=== PATIENT | male | born 1985 | race Caucasian/White ===

== ENCOUNTER 2017-08-17 11:00 | Emergency (ER) | payer OTHER ==
[~2017-08-17] VITALS: Ht 188 cm; Wt 139.7 kg
[~2017-08-17 11:00] MED LIST: ACET325 PO; ACET500; ACET500 PO; ALPR.25 PO; ASPI325; CEPH500 PO; CLON.5 PO; CLON1; CODEINE-GUAIFE120 ML PO; CYCL10; CYCL10 PO; DIPH25 PO; DIPH50 PO; GABA100 PO; HYDACE5 PO; HYDCOR1TC TOP; HYDR1TAB94 PO; IBUP600 PO; IBUP800; IBUP800 PO; Lyrica25 MG; METPRE4DP PO; MULVITA; NAPR550 PO; Naprosyn500 MG PO; Norco 5-325 Ta1 EACH PO; OXYACE5T PO; PARO10 PO; PRED10 PO; PRED20 PO; PROM25 PO; Pepcid40 MG PO; RXNAPNA550 PO; RXOXYACE PO; Vibramycin100 MG PO; Vistaril50 MG PO; [UNRECOGNIZED DRUG - OTHER]; [UNRECOGNIZED DRUG - REMARK]
[2017-08-17] MEDS ORDERED: Migraine Relie1 EACH (11:09)
[2017-08-17] MEDS ORDERED: NAPR500 (11:09)
[2017-08-17] MEDS ORDERED: CYCL10 (11:09)
[2017-08-17] MEDS ORDERED: [UNRECOGNIZED DRUG - OTHER] (11:10)
[2017-08-17] MEDS ORDERED: Norco 10-325 T1 EACH PO (11:42)
[2017-08-17] MEDS ORDERED: Valium5 MG PO (11:42)
[2017-12-26] MEDS ORDERED: Norco 5-325 Ta1 EACH PO (18:50)
[2017-12-26] MEDS ORDERED: Cipro500 MG PO (18:50)
== END 2017-08-17 11:43 | disposition home or self-care (01) ==
LOC: ER 11:00
DX: M62.89 Other specified disorders of muscle (principal); I10 Essential (primary) hypertension; F32.9 Major depressive disorder, single episode, unspecified; F17.200 Nicotine dependence, unspecified, uncomplicated; Z88.0 Allergy status to penicillin; Z88.5 Allergy status to narcotic agent; Z79.899 Other long term (current) drug therapy; Z79.82 Long term (current) use of aspirin; Z90.89 Acquired absence of other organs
CPT/HCPCS: 96372; 99283; J1885

== ENCOUNTER → 2017-09-19 | Outpatient (CLI) | payer OTHER ==
[~2017-09-19] MED LIST changes: +Cipro500 MG PO; +Migraine Relie1 EACH; +NAPR500; +Norco 10-325 T1 EACH PO; +Valium5 MG PO; +[UNRECOGNIZED DRUG - OTHER]
[2017-09-19 09:24] LABS: Specimen Source UR
[2017-09-20 14:39] LABS: Source UR
== END | disposition home or self-care (01) ==
LOC: LAB 09:00
PROVIDERS: Physician Assistant
DX: R30.0 Dysuria (principal)
CPT/HCPCS: 87491; 87591

== ENCOUNTER → 2017-12-26 | Outpatient (CLI) | payer OTHER ==
[2017-12-26 13:30] LABS: Source, Urine Clean Catch
[2017-12-26 16:09] LABS: Appearance, Urine Clear (Clear); Blood, Urine Neg (Neg); Glucose Qualitative, Urine Neg (Neg); Ketones, Urine Neg (Neg); Leukocyte Esterase, Urine Neg (Neg); Nitrite, Urine Pos (Neg); Protein, Urine 2+ (Neg); Specific Gravity, Urine 1.015 (1.003-1.022); Urobilinogen, Urine 4+ (Normal)
[2017-12-26 17:23] LABS: Bilirubin, Urine 3+ (Neg); Color, Urine Orange (P-Yellow)
[2017-12-26 17:24] LABS: Mucus Light (0-Heavy); Squamous Epithelial Cells Few /hpf (Few)
[2017-12-26 17:25] LABS: Bacteria Few /hpf; Red Blood Cells, Urine 0-2 /hpf (0-2)
== END ==
LOC: LAB SHORT 12:00 → LAB 12:00
PROVIDERS: Nurse Practitioner Family
DX: R31.0 Gross hematuria (principal)
CPT/HCPCS: 81001; 87086

== ENCOUNTER 2020-05-26 16:28 | Emergency (ER) | payer OTHER ==
[~2020-05-26] VITALS: Ht 190.5 cm; Wt 145.2 kg
[~2020-05-26 16:28] MED LIST changes: -Buspirone HCl15 MG PO; -DULOXETINE HCL60 M1 PO; -OXYACE7.5T PO; -PREGABALIN75 MG PO
[2020-05-26] MEDS ORDERED: PREGABALIN75 MG PO (16:38)
[2020-05-26] MEDS ORDERED: Buspirone HCl15 MG PO (16:39)
[2020-05-26] MEDS ORDERED: DULOXETINE HCL60 M1 PO (16:39)
[2020-05-26 16:50] LABS: BASOPHILS ABSOLUTE AUTO 0.06 K/mm3 (0.00-0.23); BASOPHILS PERCENT AUTO 0 % (0-2); EOSINOPHILS ABSOLUTE AUTO 0.18 K/mm3 (0.00-0.68); EOSINOPHILS PERCENT AUTO 1 % (0-6); Hematocrit 43.6 % (37.0-53.0); Hemoglobin 14.4 g/dL (13.5-17.5); IMMATURE GRAN ABSOLUTE AUTO 0.05 K/mm3 (0.00-0.10); IMMATURE GRAN PERCENT AUTO 0 % (0-1); LYMPHOCYTES ABSOLUTE AUTO 2.25 K/mm3 (0.84-5.20); LYMPHOCYTES PERCENT AUTO 15 % (21-46); MONOCYTES ABSOLUTE AUTO 1.06 K/mm3 (0.16-1.47); MONOCYTES PERCENT AUTO 7 % (4-13); Mean Corpuscular HGB 29.9 pg (26.0-34.0); Mean Corpuscular Volume 91 fL (80-100); Mean Platelet Volume 9.5 fL (9.1-12.4); NEUTROPHILS ABSOLUTE AUTO 11.63 K/mm3 (1.96-9.15); NEUTROPHILS PERCENT AUTO 76 % (41-73); Platelet Count 257 K/mm3 (150-400); RDW Coefficient Variation 12.3 % (11.7-14.2); RDW Standard Deviation 40.6 fL (35.1-46.3); Red Blood Cell Count 4.81 M/mm3 (4.30-5.90); White Blood Cell Count 15.23 K/mm3 (4.00-11.30)
[2020-05-26 17:04] LABS: International Normalized Ratio 0.96; Prothrombin Time Results 10.3 Sec (9.7-11.5)
[2020-05-26 17:12] LABS: Alanine Aminotransfer (ALT/SGP 46 U/L (12-78); Albumin, Blood 4.6 g/dL (3.4-5.0); Albumin/Globulin Ratio 1.5 (0.8-1.8); Alk Phos 80 U/L (50-136); Anion Gap 5 mmol/L (6-16); Aspartate Aminotrans (AST/SGOT 27 U/L (12-37); Bilirubin, Total 0.5 mg/dL (0.1-1.0); Blood Urea Nitrogen 13 mg/dL (8-24); CO2, Blood 26 mmol/L (21-32); Calcium, Blood 9.2 mg/dL (8.5-10.1); Chloride, Blood 108 mmol/L (98-108); Creatinine, Blood 0.93 mg/dL (0.60-1.20); Globulin, Blood 3.1 g/dL (2.2-4.0); Glomerular Filtration Rate >60 (60-); Glucose, Blood 99 mg/dL (70-99); Potassium, Blood 4.2 mmol/L (3.5-5.5); Sodium, Blood 139 mmol/L (136-145); Total Protein, Blood 7.7 g/dL (6.4-8.2)
[2020-05-26] MEDS ORDERED: OXYACE7.5T PO (17:37)
== END 2020-05-26 18:32 | disposition home or self-care (01) ==
LOC: ER 16:28
PROVIDERS: Emergency Medicine
DX: S09.90XA Unspecified injury of head, initial encounter (principal); S16.1XXA Strain of muscle, fascia and tendon at neck level, initial encounter; S20.219A Contusion of unspecified front wall of thorax, initial encounter; S30.811A Abrasion of abdominal wall, initial encounter; M54.5 Low back pain; M54.6 Pain in thoracic spine; F32.9 Major depressive disorder, single episode, unspecified; I10 Essential (primary) hypertension; F17.210 Nicotine dependence, cigarettes, uncomplicated; Z88.5 Allergy status to narcotic agent; V53.5XXA Driver of pick-up truck or van injured in collision with car, pick-up truck or van in traffic accident, initial encounter; Y92.410 Unspecified street and highway as the place of occurrence of the external cause
CPT/HCPCS: 36415; 70450; 71045; 71260; 72125; 74177; 80053; 83690; 85025; 85610; 86850; 86900; 86901; 93005; 93010; 96374-59; 96376-59; 99285-25; J3010; Q9967

== ENCOUNTER → 2020-05-26 | Outpatient (CLI) | payer BC ==
[~2020-05-26] MED LIST changes: +Buspirone HCl15 MG PO; +DULOXETINE HCL60 M1 PO; +OXYACE7.5T PO; +PREGABALIN75 MG PO
[2020-05-26 16:22] LABS: BASOPHILS ABSOLUTE AUTO 0.05 K/mm3 (0.00-0.23); BASOPHILS PERCENT AUTO 0 % (0-2); EOSINOPHILS ABSOLUTE AUTO 0.19 K/mm3 (0.00-0.68); EOSINOPHILS PERCENT AUTO 1 % (0-6); Hematocrit 43.1 % (37.0-53.0); Hemoglobin 14.9 g/dL (13.5-17.5); IMMATURE GRAN ABSOLUTE AUTO 0.05 K/mm3 (0.00-0.10); IMMATURE GRAN PERCENT AUTO 0 % (0-1); LYMPHOCYTES ABSOLUTE AUTO 1.89 K/mm3 (0.84-5.20); LYMPHOCYTES PERCENT AUTO 13 % (21-46); MONOCYTES ABSOLUTE AUTO 1.03 K/mm3 (0.16-1.47); MONOCYTES PERCENT AUTO 7 % (4-13); Mean Corpuscular HGB 30.7 pg (26.0-34.0); Mean Corpuscular HGB Conc 34.6 g/dL (31.5-36.5); Mean Corpuscular Volume 89 fL (80-100); Mean Platelet Volume 9.7 fL (9.1-12.4); NEUTROPHILS ABSOLUTE AUTO 11.22 K/mm3 (1.96-9.15); NEUTROPHILS PERCENT AUTO 78 % (41-73); Platelet Count 273 K/mm3 (150-400); RDW Coefficient Variation 12.5 % (11.7-14.2); RDW Standard Deviation 40.6 fL (35.1-46.3); Red Blood Cell Count 4.86 M/mm3 (4.30-5.90); White Blood Cell Count 14.43 K/mm3 (4.00-11.30)
[2020-05-26 16:36] LABS: Alanine Aminotransfer (ALT/SGP 49 U/L (12-78); Albumin, Blood 4.9 g/dL (3.4-5.0); Albumin/Globulin Ratio 1.4 (0.8-1.8); Alk Phos 79 U/L (40-126); Anion Gap 10 mmol/L (6-16); Aspartate Aminotrans (AST/SGOT 29 U/L (12-37); Bilirubin, Total 0.5 mg/dL (0.1-1.0); Blood Urea Nitrogen 14 mg/dL (8-24); Bun/Creatinine Ratio 14.9 (12.0-20.0); CO2, Blood 26 mmol/L (21-32); Calcium, Blood 9.6 mg/dL (8.5-10.1); Chloride, Blood 101 mmol/L (98-108); Creatinine, Blood 0.94 mg/dL (0.60-1.20); Globulin, Blood 3.5 g/dL (2.2-4.0); Glomerular Filtration Rate >60 (60-); Glucose, Blood 100 mg/dL (70-99); Potassium, Blood 4.3 mmol/L (3.5-5.5); Sodium, Blood 137 mmol/L (136-145); Total Protein, Blood 8.4 g/dL (6.4-8.2)
== END | disposition home or self-care (01) ==
LOC: LAB SHORT 16:15
PROVIDERS: Chiropractor
DX: R07.9 Chest pain, unspecified (principal)
CPT/HCPCS: 80053; 85025

== ENCOUNTER → 2020-11-27 | Outpatient (CLI) | payer OTHER ==
[~2020-11-27] MED LIST changes: +Buspirone HCl15 MG PO; +DULOXETINE HCL60 M1 PO; +OXYACE7.5T PO; +PREGABALIN75 MG PO
[2020-11-27 17:27] LABS: BASOPHILS ABSOLUTE AUTO 0.03 K/mm3 (0.00-0.23); BASOPHILS PERCENT AUTO 0 % (0-2); EOSINOPHILS ABSOLUTE AUTO 0.27 K/mm3 (0.00-0.68); EOSINOPHILS PERCENT AUTO 3 % (0-6); Hematocrit 40.3 % (37.0-53.0); Hemoglobin 13.8 g/dL (13.5-17.5); IMMATURE GRAN ABSOLUTE AUTO 0.04 K/mm3 (0.00-0.10); IMMATURE GRAN PERCENT AUTO 0 % (0-1); LYMPHOCYTES ABSOLUTE AUTO 2.39 K/mm3 (0.84-5.20); LYMPHOCYTES PERCENT AUTO 23 % (21-46); MONOCYTES ABSOLUTE AUTO 0.61 K/mm3 (0.16-1.47); MONOCYTES PERCENT AUTO 6 % (4-13); Mean Corpuscular HGB 30.5 pg (26.0-34.0); Mean Corpuscular HGB Conc 34.2 g/dL (31.5-36.5); Mean Corpuscular Volume 89 fL (80-100); Mean Platelet Volume 10.3 fL (9.1-12.4); NEUTROPHILS ABSOLUTE AUTO 6.87 K/mm3 (1.96-9.15); NEUTROPHILS PERCENT AUTO 67 % (41-73); Platelet Count 240 K/mm3 (150-400); RDW Coefficient Variation 12.7 % (11.7-14.2); RDW Standard Deviation 40.9 fL (35.1-46.3); Red Blood Cell Count 4.52 M/mm3 (4.30-5.90); White Blood Cell Count 10.21 K/mm3 (4.00-11.30)
[2020-11-27 17:37] LABS: Alanine Aminotransfer (ALT/SGP 42 U/L (12-78); Albumin, Blood 4.4 g/dL (3.4-5.0); Albumin/Globulin Ratio 1.4 (0.8-1.8); Alk Phos 109 U/L (40-126); Anion Gap 8 mmol/L (6-16); Aspartate Aminotrans (AST/SGOT 29 U/L (12-37); Bilirubin, Total 0.3 mg/dL (0.1-1.0); Blood Urea Nitrogen 22 mg/dL (8-24); Bun/Creatinine Ratio 21.2 (12.0-20.0); CO2, Blood 28 mmol/L (21-32); Calcium, Blood 8.9 mg/dL (8.5-10.1); Chloride, Blood 104 mmol/L (98-108); Creatinine, Blood 1.04 mg/dL (0.60-1.20); Globulin, Blood 3.1 g/dL (2.2-4.0); Glomerular Filtration Rate >60 (60-); Glucose, Blood 117 mg/dL (70-99); Potassium, Blood 3.8 mmol/L (3.5-5.5); Sodium, Blood 140 mmol/L (136-145); Total Protein, Blood 7.5 g/dL (6.4-8.2)
[2020-11-27 17:52] LABS: Thyroid Stimulating Hormone 1.069 uIU/mL (0.360-4.800); Troponin I <0.017 ng/mL (0.000-0.040)
== END | disposition home or self-care (01) ==
LOC: LAB SHORT 17:19
PROVIDERS: Physician Assistant Medical
DX: R07.9 Chest pain, unspecified (principal); R53.83 Other fatigue
CPT/HCPCS: 80053; 84443; 84484; 85025; 85379; 85651

== ENCOUNTER 2022-10-07 18:56 | Emergency (ER) | payer OTHER ==
[~2022-10-07] VITALS: Ht 190.5 cm; Wt 158.8 kg
[2022-10-07] MEDS ORDERED: PREG200 PO (20:12)
[2022-10-07] MEDS ORDERED: QUETIAPINE FUMA25 MG PO (20:13)
[2022-10-07] MEDS ORDERED: Zithromax250 MG PO (20:18)
[2022-10-07 20:31] LABS: Influenza A, PCR NEGATIVE (NEGATIVE); Influenza B, PCR NEGATIVE (NEGATIVE); Resp Syncytial Virus, PCR NEGATIVE (NEGATIVE); SARS-Cov-2 (COVID-19) PCR, MMC NEGATIVE (NEGATIVE)
[2022-10-07 21:41] LABS: BASOPHILS ABSOLUTE AUTO 0.05 K/mm3 (0.00-0.23); BASOPHILS PERCENT AUTO 0 % (0-2); EOSINOPHILS PERCENT AUTO 1 % (0-6); Hematocrit 34.1 % (37.0-53.0); Hemoglobin 11.5 g/dL (13.5-17.5); IMMATURE GRAN PERCENT AUTO 2 % (0-1); LYMPHOCYTES ABSOLUTE AUTO 1.84 K/mm3 (0.84-5.20); LYMPHOCYTES PERCENT AUTO 10 % (21-46); MONOCYTES ABSOLUTE AUTO 2.12 K/mm3 (0.16-1.47); MONOCYTES PERCENT AUTO 12 % (4-13); Mean Corpuscular HGB 29.6 pg (26.0-34.0); Mean Corpuscular HGB Conc 33.7 g/dL (31.5-36.5); Mean Corpuscular Volume 88 fL (80-100); Mean Platelet Volume 10.2 fL (9.1-12.4); NEUTROPHILS ABSOLUTE AUTO 13.81 K/mm3 (1.96-9.15); NEUTROPHILS PERCENT AUTO 76 % (41-73); Platelet Count 192 K/mm3 (150-400); RDW Coefficient Variation 13.1 % (11.7-14.2); RDW Standard Deviation 42.4 fL (35.1-46.3); Red Blood Cell Count 3.89 M/mm3 (4.30-5.90); White Blood Cell Count 18.22 K/mm3 (4.00-11.30)
[2022-10-07 22:01] LABS: Albumin, Blood 2.8 g/dL (3.4-5.0); Albumin/Globulin Ratio 0.7 (0.8-1.8); Bilirubin, Total 0.4 mg/dL (0.1-1.0); Bun/Creatinine Ratio 15.7 (12.0-20.0); Calcium, Blood 8.5 mg/dL (8.5-10.1); Creatinine, Blood 0.83 mg/dL (0.60-1.20); Globulin, Blood 4.3 g/dL (2.2-4.0); Potassium, Blood 3.9 mmol/L (3.5-5.5); Total Protein, Blood 7.1 g/dL (6.4-8.2)
[2022-10-08] MEDS ORDERED: DIVA250ER PO (22:43)
[2022-10-08] MEDS ORDERED: TIZANIDINE HCL2 M1 PO (22:57)
== END 2022-10-07 22:56 | disposition home or self-care (01) ==
LOC: ER 18:56
PROVIDERS: Physician Assistant
DX: J18.9 Pneumonia, unspecified organism (principal); I10 Essential (primary) hypertension; F17.210 Nicotine dependence, cigarettes, uncomplicated; Z88.0 Allergy status to penicillin; Z88.5 Allergy status to narcotic agent; Z79.899 Other long term (current) drug therapy; Z20.822 Contact with and (suspected) exposure to COVID-19
CPT/HCPCS: 0241U; 36415; 71046; 80053; 83605; 85025; 96365; 96375; 99284-25; A9270; J0456; J1885; J7030; J7050

== ENCOUNTER 2022-10-08 16:59 | Inpatient (IN) | payer OTHER ==
[~2022-10-08] VITALS: Ht 190.5 cm; Wt 160.0 kg
[~2022-10-08 16:59] MED LIST changes: +PREG200 PO; +QUETIAPINE FUMA25 MG PO; +Zithromax250 MG PO
[2022-10-08 17:54] LABS: BASOPHILS ABSOLUTE AUTO 0.07 K/mm3 (0.00-0.23); BASOPHILS PERCENT AUTO 1 % (0-2); EOSINOPHILS ABSOLUTE AUTO 0.11 K/mm3 (0.00-0.68); EOSINOPHILS PERCENT AUTO 1 % (0-6); Hematocrit 34.8 % (37.0-53.0); Hemoglobin 11.7 g/dL (13.5-17.5); IMMATURE GRAN PERCENT AUTO 5 % (0-1); LYMPHOCYTES ABSOLUTE AUTO 1.54 K/mm3 (0.84-5.20); LYMPHOCYTES PERCENT AUTO 10 % (21-46); MONOCYTES ABSOLUTE AUTO 1.43 K/mm3 (0.16-1.47); MONOCYTES PERCENT AUTO 10 % (4-13); Mean Corpuscular HGB 29.5 pg (26.0-34.0); Mean Corpuscular HGB Conc 33.6 g/dL (31.5-36.5); Mean Corpuscular Volume 88 fL (80-100); Mean Platelet Volume 10.4 fL (9.1-12.4); NEUTROPHILS ABSOLUTE AUTO 11.22 K/mm3 (1.96-9.15); NEUTROPHILS PERCENT AUTO 75 % (41-73); Platelet Count 202 K/mm3 (150-400); RDW Coefficient Variation 13.3 % (11.7-14.2); Red Blood Cell Count 3.97 M/mm3 (4.30-5.90); White Blood Cell Count 15.07 K/mm3 (4.00-11.30)
[2022-10-08 18:06] LABS: Albumin/Globulin Ratio 0.7 (0.8-1.8); Bilirubin, Total 0.4 mg/dL (0.1-1.0); Bun/Creatinine Ratio 15.9 (12.0-20.0); Calcium, Blood 8.8 mg/dL (8.5-10.1); Creatinine, Blood 0.82 mg/dL (0.60-1.20); Globulin, Blood 4.3 g/dL (2.2-4.0); Potassium, Blood 3.6 mmol/L (3.5-5.5); Total Protein, Blood 7.3 g/dL (6.4-8.2)
[2022-10-08] MEDS ORDERED: DIVA250ER PO (22:43)
[2022-10-08] MEDS ORDERED: TIZANIDINE HCL2 M1 PO (22:57)
[2022-10-09 04:38] LABS: Hematocrit 33.3 % (37.0-53.0); Mean Corpuscular HGB 28.8 pg (26.0-34.0); Mean Corpuscular Volume 87 fL (80-100); Mean Platelet Volume 10.5 fL (9.1-12.4); Platelet Count 195 K/mm3 (150-400); RDW Coefficient Variation 13.5 % (11.7-14.2); RDW Standard Deviation 43.2 fL (35.1-46.3); Red Blood Cell Count 3.82 M/mm3 (4.30-5.90)
[2022-10-09 05:12] LABS: BAND PERCENT MAN 5 % (0-8); BASOPHILS ABSOLUTE MAN 0.14 K/mm3 (0.00-0.23); BASOPHILS PERCENT MAN 1 % (0-2); EOSINOPHILS PERCENT MAN 0 % (0-6); LYMPHOCYTES ABSOLUTE MAN 1.29 K/mm3 (0.84-5.20); LYMPHOCYTES PERCENT MAN 9 % (21-46); MONOCYTES ABSOLUTE MAN 0.86 K/mm3 (0.16-1.47); MONOCYTES PERCENT MAN 6 % (4-13); MYELOCYTE ABSOLUTE MAN 0.43 K/mm3 (0.00-0.00); MYELOCYTE PERCENT MAN 3 % (0-0); NEUTROPHILS ABSOLUTE MAN 11.66 K/mm3 (1.96-9.15); SEG NEUTROPHILS PERCENT MAN 76 % (41-73); TOTAL CELLS COUNTED 100
--- NOTE | 2022-10-09 07:25 | NUR ---
Shift Summary PT arrived to our unit from the ED with a dx of bilat pneumonia, worse in the R lobe and sepsis. Pt was given his normal mental health meds except Serquel at 0055. Pt c/o severe 8-9/10 pain on his R torso which can radiate to his back and down his right arm. Medicated per EMAR. Pt took a shower with the assistance of his fiance around midnight. AOX4, 1 SBA to the bathroom, on room air. PT on tele running sinus tach. VSS, pleasant and cooperative.
--- NOTE | 2022-10-09 13:02 | NUR ---
NOTE AFTER MULTIPLE PHONE CALLS TO DR BAER. PT IS FINALLY RESTING. PAIN AND ANXIETY HAVE BEEN A SIGNIFICANT COMPLICATION WITHHIS ABILITY TO REST. GIRLFRIEND AT BEDSIDE. HE IS COUGHING UP LARGE YELLOW/MTZ PLUGS. WHEN HE COUGHS HIS INTERCOSTAL MUSCLES SPASM AND HE JUMPS OOB. HE TRIED TO HUG A PILLOW. DID NOT HELP. TRIED A KPAD. HE LIKED IT BUT IT MADE HIM TOO HOT. WILL CONTINUE TO MONITOR.
--- NOTE | 2022-10-09 15:14 | NUR ---
LOC PT SOMULENT, NODDING OFF. SLURRING HIS WORDS. BUT HE STILLWANTS MORE NARCOTICS. COUGHING UP LARGE AMOUNTS OF YELLOW, SPUTUM. CONTINIOUS SPO2 92-94%. HR 120'S. WHEN HE COUGHS HIS SPO2 DROPS TO 86%. HE RECOVERS SOON HE STOPS COUGHING. REFUSES TO USE CPAP. HE SAYS HE TO ANXIOUS. DR BAER IS AWARE. CONTINUE POC.
--- NOTE | 2022-10-09 15:23 | NUR ---
DR BAER CALLED TO RELAY FAMILY REQUET TO MOVE TO PCU. RELATED VS AND BP. NO ORDERS. DR BAER STATED HE WILL BE HERE TO REASSESS PT. CONTINUE POC.
[2022-10-09 16:35] LABS: Base Excess Venous 1.2 mmol/L; Bicarbonate Venous 24.7 mmol/L (24.0-30.0); PCO2 Venous 43.4 mmHg (38-42); pH Blood Venous 7.39 (7.34-7.37)
--- NOTE | 2022-10-09 17:30 | NUR ---
TRANSFER TO PCU 5 REPORT CALLED TO PCU. PT TRANSPORTED VIA OXYGEN BED. GIRL FRIEND IN ATTENDANCE. BELONGINGS AND CPAP MOVED WITH HIM. DR BAER IN ATTENDANCE. CONTINUE POC.
--- NOTE | 2022-10-09 18:25 | NUR ---
PT ARRIVED IN THE ROOM AT APPROX 1700 VIA HOSPITAL BED SIGNIFICANT OTHER AT THE BEDSIDE. PT WAS TACHYPNEIC RR 35-40 WAS ON 3L UPON ARRIVAL WAS BUMPED UP TO 6L PT CARLO KEPT ABOVE 90%, HRR ALSO ST ON THE 140-150'S PT STARTED ON CARDIZEM PO 30 MG ACHS, SBP 120'S, TEMP 99.2. PT WITH ANXIETY AND PANIC ATTACK STOOD UP AT THE BEDSIDE STARTED C/O SOB RIGHT WHEN PT SAT BACK IN BED PT YELLED OUT "I CANT BREATHE!" NOTICED THAT PT PULLED HIS O2 UP TO HIS FOREHEAD REDIRECTED TO PUT IT BACK IN PLACE AND INSTRUCTED WITH DEEP BREATHING EXERCISES SATS WENT DOWN TO 85% RECOVERED BACK AFTER O2 TURNED UP TO 6L. PT HAS RIGHT RIB PAIN HAS FLAIL MOVEMENT WHEN COUGHING DUE TO PAIN, MEDICATED WITH OXYCODONE AND TYLENOL. PT MORE CALM AT THIS TIME, MOM AND BROTHER AT THE BEDSIDE. DENIES ANY NEED. REFUSED DINNER TRAY. WILL REPORT TO ONCOMING SHIFT
[2022-10-09 21:13] LABS: U Amphetamine Screen Not Detected; U Barbituate Screen Not Detected; U Benzodiazapine Screen Not Detected; U Buprenorphine Screen Not Detected; U Cannabinoids Screen DETECTED; U Cocaine Screen Not Detected; U Methadone Screen Not Detected; U Methamphetamine Screen Not Detected; U Opiates Screen DETECTED; U Oxycodone Screen DETECTED; U Phencyclidine Screen Not Detected; U Propoxyphene Screen Not Detected
--- NOTE | 2022-10-09 21:32 | NUR ---
ASSUMPTION OF CARE THIS RN ASSUMED CARE OF PATIENT AT 1900. REPORT TAKEN FROM YAAKOV ROBERTS. PATIENT ON 6L VIA NC. BREATHING TREATMENT DONE AT BEGINNING OF SHIFT D/T AUDIBLE WHEEZES HEARD BY THIS RN. LS WITH COARSE CRACKLES THROUGHOUT. WHEEZING IN UPPER LOBES. BP STABLE WITH SBP 150'S. SINUS TACH ON THE MONITOR WITH HR 120-130'S AT REST, HR UP TO 150-160'S WITH ACTIVITY. TACHYPNEA NOTED WITH RR 26-32. RIGHT UPPER RIB AND POSTERIOR SCAPULA PAIN REPORTED; LIDOCAINE PATCHES PLACED PER ORDER AND PATIENT PREFERENCE. MEDICATING PER EMAR FOR ANXIETY AND PAIN. PATIENT HAS BEEN LETHARGIC MOST OF THE SHIFT. PALE AND DIAPHORETIC. ORAL TEMP 99.2 AT BEGINNING OF SHIFT. PULSES STRONG THROUGHOUT. CAP REFILL <3 SECONDS. PATIENT TO IMAGING FOR CHEST CT AT 2100. TOXICOLOGY UA SENT. BED IN LOWEST POSITION AND CALL LIGHT WITHIN REACH.
--- NOTE | 2022-10-10 05:06 | NUR ---
SHIFT SUMMARY NO ACUTE CHANGES OVERNIGHT. SINUS TACH ON THE MONITOR WITH HR 100-110'S WHILE RESTING. PATIENT IS CURRENTLY ON CPAP AND HAS WORN IT THE MAJORITY OF THE SHIFT WITH 6L BLEED IN. RR 22-26 AT THIS TIME. AFEBRILE. BP STABLE. CONTINUES TO BE LETHARGIC AND DIAPHORETIC. HOB ELEVATED. MEDICATING PER EMAR FOR PAIN. REPOSITIONING Q2HRS PRN DEPENDENDING ON ACTIVITY/LETHARGY. BED IN LOWEST POSITION AND CALL LIGHT WITHIN REACH. NO FURTHER CHANGES SINCE PREVIOUS NOTE. SEE ASSESSMENT. THIS RN WILL CONTINUE TO MONITOR UNTIL SHIFT CHANGE AT 0700.
[2022-10-10 06:28] LABS: BASOPHILS ABSOLUTE AUTO 0.18 K/mm3 (0.00-0.23); BASOPHILS PERCENT AUTO 1 % (0-2); EOSINOPHILS ABSOLUTE AUTO 0.03 K/mm3 (0.00-0.68); EOSINOPHILS PERCENT AUTO 0 % (0-6); Hematocrit 36.9 % (37.0-53.0); Hemoglobin 12.4 g/dL (13.5-17.5); IMMATURE GRAN PERCENT AUTO 3 % (0-1); LYMPHOCYTES ABSOLUTE AUTO 1.93 K/mm3 (0.84-5.20); LYMPHOCYTES PERCENT AUTO 6 % (21-46); MONOCYTES ABSOLUTE AUTO 2.88 K/mm3 (0.16-1.47); MONOCYTES PERCENT AUTO 9 % (4-13); Mean Corpuscular HGB Conc 33.6 g/dL (31.5-36.5); Mean Corpuscular Volume 86 fL (80-100); Mean Platelet Volume 10.2 fL (9.1-12.4); NEUTROPHILS ABSOLUTE AUTO 25.94 K/mm3 (1.96-9.15); NEUTROPHILS PERCENT AUTO 82 % (41-73); Platelet Count 232 K/mm3 (150-400); RDW Coefficient Variation 13.7 % (11.7-14.2); Red Blood Cell Count 4.27 M/mm3 (4.30-5.90); White Blood Cell Count 31.76 K/mm3 (4.00-11.30)
[2022-10-10 06:44] LABS: Albumin, Blood 2.3 g/dL (3.4-5.0); Anion Gap 5 mmol/L (6-16); Blood Urea Nitrogen 10 mg/dL (8-24); Bun/Creatinine Ratio 12.3 (12.0-20.0); CO2, Blood 29 mmol/L (21-32); Calcium, Blood 8.4 mg/dL (8.5-10.1); Chloride, Blood 102 mmol/L (98-108); Creatinine, Blood 0.81 mg/dL (0.60-1.20); Glomerular Filtration Rate 118 (60-); Glucose, Blood 114 mg/dL (70-99); Phosphorus, Blood 5.1 mg/dL (2.5-4.9); Potassium, Blood 3.9 mmol/L (3.5-5.5); Sodium, Blood 136 mmol/L (136-145)
--- NOTE | 2022-10-10 09:01 | NUR ---
PATIENT IN NO DISTRESS THIS AM, OFF CPAP ON 6L O2, JACKIE PARTIDA CALLED AND DEMANDED TO SPEAK TO NURSING [employer] SALES REPRESENTATIVE, REPORTED TO DR BAER AND CHARGE NURSE OF JACKIE PARTIDA REQUESTS, CALL LIGHT WITH IN PATIENTS REACH, PATIENT ABLE TO MAKE NEEDS KNOWN
--- NOTE | 2022-10-10 15:42 | NUR ---
POWERGLIDE PLACED, PATIENT VERY SOB, DESATED TO 82%, RECOVERED WITH DEEP BREATHING, PATIENT DID NOT RECOVER QUICKLY, PATIENT STAYED 89-90% ON 6L O2, REPORTED TO RT, PATIENT TO BE GOING DOWN FOR CT DRAIN PLACEMENT, AT BEDSIDE
--- NOTE | 2022-10-10 16:43 | NUR ---
PATIENT IN CT FOR DRAINAGE BAG PLACEMENT, AND MOTHER WAITING IN THE ROOM
--- NOTE | 2022-10-10 17:37 | NUR ---
BACK FROM CT AT 1755, DRAINAGE BAG TO RIGHT FLANK, ALERT MAKES NEEDS KNOWN, 05/13 PAIN, MEDICATED WITH 5MG OXYCODONE, FIANCE AND MOTHER AT BEDSIDE, PATIENT CLEARING CONGESTION, PRODUCTIVE COUGH, SPUTUMN SAMPLE SENT, 7L HIGH FLOW, SATS 91-94%, ENCOURAGED DEEP BREAHTING. STARTED VANCOMYCIN AND ZOSYN, CALL LIGHT WITH IN REACH, WILL RELAY TO PM ARMANDO
[2022-10-10 17:41] LABS: Automated BF RBC Count 0.006 M/mm3 (0-0)
[2022-10-10 17:46] LABS: Body Fluid WBC Count 2540 /mm3 (0-999); RBC Count, Body Fluid 6000 /mm3 (0-0)
[2022-10-10 18:27] LABS: Appearance, Body Fluid Hazy (Clear); Color, Body Fluid Yellow (None-Yellow); Total Cell Count, Body Fluid 100
[2022-10-10 18:50] LABS: Glucose, Body Fluid 2 mg/dL; Lactate Dehydrogenase, Body Fl 891 U/L; Protein, Body Fluid 4.8 g/dL
--- NOTE | 2022-10-10 19:51 | NUR ---
ASSUMPTION OF CARE THIS RN ASSUMED CARE OF PATIENT AT 1900. REPORT TAKEN FROM ANDREW ROBERTS. PATIENT IS LETHARGIC BUT ORIENTED FULLY AT SHIFT CHANGE. ON 8L VIA HIFLOW NC WITH SPO2 90-91%. RR 24-26. ACCORDIAN DRAIN IN RIGHT UPPER CHEST WITH THIN YELLOW DRAINAGE IN COLLECTION BAG; DRESSING C/D/I AND STATLOCK SECURING DRAIN. PATIENT CONTINUES TO ENDORSE PAIN IN UPPER CHEST THAT IS INCREASED WITH COUGHING. REPORTED PRODUCTIVE COUGH, NO PRODUCTIVE COUGH NOTED YET THIS SHIFT. BP STABLE WITH SBP 140'S. SINUS TACH ON MONITOR WITH HR 100-110'S. MOTHER AND GIRLFRIEND AT BEDSIDE. GIRLFRIEND STATES SHE WILL BE STAYING THE NIGHT. GIRLFRIEND EDUCATED ON VISITOR POLICY, THIS RN STATED SHE WILL BE ALLOWED TO STAY LONG SHE IS APPROPRIATE AND DOES NOT INTERFERE WTIH THIS RN'S CARE. GIRLFRIEND WITH NOTED HIGH LEVEL OF ANXIETY AND EDUCATED ON ASKING QUESTIONS AND NOT CAUSING INCREASED ANXIETY FOR PATIENT. PATIENT BEING REPOSITIONED Q2HRS. CPAP FOR NOC/SLEEP. MEDICATING PER EMAR. BED IN LOWEST POSITION AND CALL LIGHT WITHIN REACH.
[2022-10-11 03:56] LABS: BASOPHILS ABSOLUTE AUTO 0.12 K/mm3 (0.00-0.23); BASOPHILS PERCENT AUTO 0 % (0-2); EOSINOPHILS ABSOLUTE AUTO 0.05 K/mm3 (0.00-0.68); EOSINOPHILS PERCENT AUTO 0 % (0-6); Hematocrit 32.3 % (37.0-53.0); Hemoglobin 11.1 g/dL (13.5-17.5); IMMATURE GRAN ABSOLUTE AUTO 1.36 K/mm3 (0.00-0.10); IMMATURE GRAN PERCENT AUTO 5 % (0-1); LYMPHOCYTES ABSOLUTE AUTO 1.95 K/mm3 (0.84-5.20); LYMPHOCYTES PERCENT AUTO 7 % (21-46); MONOCYTES ABSOLUTE AUTO 2.15 K/mm3 (0.16-1.47); MONOCYTES PERCENT AUTO 8 % (4-13); Mean Corpuscular HGB 29.4 pg (26.0-34.0); Mean Corpuscular HGB Conc 34.4 g/dL (31.5-36.5); Mean Corpuscular Volume 85 fL (80-100); Mean Platelet Volume 10.8 fL (9.1-12.4); NEUTROPHILS ABSOLUTE AUTO 21.09 K/mm3 (1.96-9.15); NEUTROPHILS PERCENT AUTO 79 % (41-73); Platelet Count 240 K/mm3 (150-400); RDW Coefficient Variation 13.9 % (11.7-14.2); RDW Standard Deviation 43.5 fL (35.1-46.3); Red Blood Cell Count 3.78 M/mm3 (4.30-5.90); White Blood Cell Count 26.72 K/mm3 (4.00-11.30)
[2022-10-11 04:15] LABS: Magnesium, Blood 2.5 mg/dL (1.6-2.4)
[2022-10-11 04:16] LABS: Anion Gap 4 mmol/L (6-16); Blood Urea Nitrogen 12 mg/dL (8-24); Bun/Creatinine Ratio 16.5 (12.0-20.0); CO2, Blood 30 mmol/L (21-32); Calcium, Blood 8.1 mg/dL (8.5-10.1); Chloride, Blood 99 mmol/L (98-108); Creatinine, Blood 0.73 mg/dL (0.60-1.20); Glomerular Filtration Rate 122 (60-); Glucose, Blood 112 mg/dL (70-99); Phosphorus, Blood 4.1 mg/dL (2.5-4.9); Potassium, Blood 3.8 mmol/L (3.5-5.5); Sodium, Blood 133 mmol/L (136-145)
--- NOTE | 2022-10-11 04:57 | NUR ---
SHIFT SUMMARY NO ACUTE CHANGES OVERNIGHT. PATIENT WAS MORE ALERT AND TALKATIVE THIS SHIFT. GIRLFRIEND WAS APPROPRIATE DURING THIS SHIFT AND STAYED WITH THE PATIENT THROUGHOUT THE NIGHT. PATIENT ON 7-9L VIA HIFLOW DURING THIS SHIFT TO MAINTAIN SPO2 >90%. CPAP WORN WHILE SLEEPING. PATIENT CONTINUES TO HAVE SHARP PAIN ON RIGHT SIDE OF TORSO, WHICH INTENSIFIES WITH COUGHING. THICK YELLOW SPUTUM NOTED WITH COUGHING. BREATHING TX PRN. PATIENT MEDICATED PER EMAR FOR PAIN. BENADRYL GIVEN X2 FOR ITCHING WITH ANTIBIOTICS. RIGHT PLEURAL DRAIN WTIH 200MLS OF YELLOW OUTPUT WITH MUCOUS/SEDIMENT. CONTINUES TO HAVE TACHYPNEA. BP STABLE. AFEBRILE. BED IN LOWEST POSITION AND CALL LIGHT WITHIN REACH. THIS RN WILL CONTINUE TO MONITOR UNTIL SHIFT CHANGE AT 0700.
--- NOTE | 2022-10-11 09:45 | NUR ---
CARE ASSUMPTION This RN assumed care at 0700. Vital Signs stable. tele SR 80-90s. Spo2>90% on 9L high flow NC. Patient is alert and oriented x4. Neuro is intact. PERRLA. Patient reports pain, rated at 8, in right side ribs and back. Repositioned and medicated per emar. See emar. Patient reports shortness of breath with activity and coughing. Patient had a productive cough with thick estevez/pink secretions. Patient lungs are coarse in upper lobes bilaterally and dim and coarse in lower lobes. Patient reports no chest pain/pressure. Strong radial and pedis pulses bilaterally. Patient abd is hypoactive and firm. Patient has reddness to left pannus. Patient has a drain to right side that is drianing yellow fluid. See shift assessment for further information. Patient is able to make needs known and uses call light apporpiately. Patient significant other is at bedside. Plan of care is up to date. Call light within reach and bed in lowest position. Repositioning every two hours.
[2022-10-11 16:11] LABS: Vancomycin, Trough 10.9 ug/mL (5.0-10.0)
--- NOTE | 2022-10-11 18:10 | NUR ---
SHIFT SUMMARY Patient neuro remains intact. vital signs stable. no acute changes this shift. call light within reach and bed in lowest position. plan of care up to date.
[2022-10-12 04:32] LABS: Hematocrit 33.5 % (37.0-53.0); Hemoglobin 11.3 g/dL (13.5-17.5); Mean Corpuscular HGB 29.4 pg (26.0-34.0); Mean Corpuscular HGB Conc 33.7 g/dL (31.5-36.5); Mean Corpuscular Volume 87 fL (80-100); Mean Platelet Volume 10.2 fL (9.1-12.4); Platelet Count 307 K/mm3 (150-400); RDW Coefficient Variation 13.9 % (11.7-14.2); RDW Standard Deviation 44.9 fL (35.1-46.3); Red Blood Cell Count 3.85 M/mm3 (4.30-5.90); White Blood Cell Count 28.52 K/mm3 (4.00-11.30)
[2022-10-12 04:56] LABS: Bun/Creatinine Ratio 20.9 (12.0-20.0); Calcium, Blood 8.5 mg/dL (8.5-10.1); Creatinine, Blood 0.72 mg/dL (0.60-1.20)
[2022-10-12 05:06] LABS: BAND PERCENT MAN 3 % (0-8); BASOPHILS PERCENT MAN 0 % (0-2); EOSINOPHILS ABSOLUTE MAN 0.28 K/mm3 (0.00-0.68); EOSINOPHILS PERCENT MAN 1 % (0-6); LYMPHOCYTES ABSOLUTE MAN 1.71 K/mm3 (0.84-5.20); LYMPHOCYTES PERCENT MAN 6 % (21-46); MONOCYTES ABSOLUTE MAN 0.57 K/mm3 (0.16-1.47); MONOCYTES PERCENT MAN 2 % (4-13); MYELOCYTE ABSOLUTE MAN 0.28 K/mm3 (0.00-0.00); MYELOCYTE PERCENT MAN 1 % (0-0); NEUTROPHILS ABSOLUTE MAN 25.66 K/mm3 (1.96-9.15); SEG NEUTROPHILS PERCENT MAN 87 % (41-73); TOTAL CELLS COUNTED 100
--- NOTE | 2022-10-12 06:47 | NUR ---
END OF SHIFT PT RESTLESS, AGITATED, ANXIOUS SINCE ABOUT 0000, PULLING MASK AND NC OFF REPEATEDLY, DILAUDID AND ATIVAN PRN GIVEN
[2022-10-12 15:54] LABS: Vancomycin, Trough 9.5 ug/mL (5.0-10.0)
--- NOTE | 2022-10-12 17:04 | NUR ---
SHIFT SUMMARY This rn assumed care at 0700. patient vital signs remain stable throughout the day. patient on 8l nonrebreather. patient is tele sinustah/sinus 90-110s. patient is alert and oriented x4. anxious at times. patient reports pain in right ribs at the site of pleural drain that radiates up into his right shoulder and back. patient medicated per emar. patient reports no chest pain/pressure. patient reports shortness of breath with activity. see shift assessment for further detials. MD mckenzie in to see patient and assess drainage bag. drainage bag not drainage adequately. See Abdi note for interventions that occured to increase drainage. This RN clamped the bag due to output hitting 2L per md order. after clampping patient reported an increase in pain, and was medicated per emar. Patient family and patient updated on plan of care. [place] in to see patient today and updated on plan of care to patient and patient family. Plan of care is up to date. call light within reach. will give report to oncoming nurse.
--- NOTE | 2022-10-13 01:14 | NUR ---
0008-URESIL DRAIN UNCLAMPED PER ORDERS, 525CC OUT, DRAIN CHARGED, UNCLAMPED BUT NO FURTHER DRAINAGE OUTPUT, NO OBVIOUS FIBRIN CLOGGING TUBING BUT THERE WAS FIBRIN NOTED IN DRAINAGE
[2022-10-13 05:35] LABS: Hematocrit 32.2 % (37.0-53.0); Hemoglobin 10.6 g/dL (13.5-17.5); Mean Corpuscular HGB Conc 32.9 g/dL (31.5-36.5); Mean Corpuscular Volume 88 fL (80-100); Platelet Count 300 K/mm3 (150-400); RDW Coefficient Variation 14.1 % (11.7-14.2); RDW Standard Deviation 45.6 fL (35.1-46.3); Red Blood Cell Count 3.65 M/mm3 (4.30-5.90); White Blood Cell Count 15.18 K/mm3 (4.00-11.30)
[2022-10-13 05:56] LABS: Albumin, Blood 1.8 g/dL (3.4-5.0); Anion Gap 2 mmol/L (6-16); Blood Urea Nitrogen 13 mg/dL (8-24); Bun/Creatinine Ratio 18.9 (12.0-20.0); CO2, Blood 33 mmol/L (21-32); Calcium, Blood 8.1 mg/dL (8.5-10.1); Chloride, Blood 98 mmol/L (98-108); Creatinine, Blood 0.69 mg/dL (0.60-1.20); Glomerular Filtration Rate 124 (60-); Glucose, Blood 122 mg/dL (70-99); Potassium, Blood 3.8 mmol/L (3.5-5.5); Sodium, Blood 133 mmol/L (136-145)
--- NOTE | 2022-10-13 06:00 | NUR ---
END OF SHIFT PT ANXIOUS AND RESTLESS, TREATED FOR PAIN MULTIPLE TIMES WITH PRN'S, AT 0000 L CHEST DRAIN UNCLAMPED AND 525 CC OUTPUT WAS OBTAINED, PT BEGAN C/O SOB, VERY ANXIOUS AND SITTING ON BEDSIDE CHEST XRAY DONE AT THAT TIME SHOWING IMPROVEMENT, DR VERMA ORDERED LASIX 20 MG, CURRENTLY PT SATTING 94% ON 9 LPM HFNC, VSS
[2022-10-13 07:22] LABS: BAND PERCENT MAN 1 % (0-8); BASOPHILS PERCENT MAN 0 % (0-2); EOSINOPHILS PERCENT MAN 0 % (0-6); LYMPHOCYTES PERCENT MAN 4 % (21-46); MONOCYTES ABSOLUTE MAN 0.75 K/mm3 (0.16-1.47); MONOCYTES PERCENT MAN 5 % (4-13); MYELOCYTE PERCENT MAN 2 % (0-0); NEUTROPHILS ABSOLUTE MAN 13.51 K/mm3 (1.96-9.15); SEG NEUTROPHILS PERCENT MAN 88 % (41-73); TOTAL CELLS COUNTED 100
--- NOTE | 2022-10-13 17:00 | NUR ---
SHIFT SUMMARY This RN assumed care at 0700. vital signs stable and have remained stable throughout this RN's shift. Patient is alert and oriented x4. patient reports pain to right ribs and upper back. patient has been medicated throughout the shift. see emar. patient reports no chest pain/pressure. patient reports shortness of breath with exertion. patient right pleural drain draining with gravity. see i&os for output. see shift assessment for further detials. patietn and patient updated on plan on care. MD Hall and MD Patton in to see patient. No acute changes this shift. Patient got up and walked around the unit this AM and tolerated it well. Patient sat in recliner for an hour today. call light within reach and bed in lowest position. will give report to oncoming RN.
--- NOTE | 2022-10-14 05:16 | NUR ---
VSS, 9LPM HFNC, PT UP TO SHOWER CHAIR AND GOT HAIR WASHED AND CLEANED UP, TREATED FOR PAIN WITH PRN'S, PT RESTED WELL WITHOUT ISSUE, SPOUSE AT BS
[2022-10-14 07:11] LABS: BASOPHILS ABSOLUTE AUTO 0.06 K/mm3 (0.00-0.23); BASOPHILS PERCENT AUTO 1 % (0-2); EOSINOPHILS ABSOLUTE AUTO 0.22 K/mm3 (0.00-0.68); EOSINOPHILS PERCENT AUTO 2 % (0-6); Hematocrit 32.9 % (37.0-53.0); Hemoglobin 10.7 g/dL (13.5-17.5); IMMATURE GRAN PERCENT AUTO 5 % (0-1); LYMPHOCYTES PERCENT AUTO 12 % (21-46); MONOCYTES ABSOLUTE AUTO 1.03 K/mm3 (0.16-1.47); MONOCYTES PERCENT AUTO 8 % (4-13); Mean Corpuscular HGB 28.9 pg (26.0-34.0); Mean Corpuscular HGB Conc 32.5 g/dL (31.5-36.5); Mean Corpuscular Volume 89 fL (80-100); Mean Platelet Volume 9.9 fL (9.1-12.4); NEUTROPHILS ABSOLUTE AUTO 9.77 K/mm3 (1.96-9.15); NEUTROPHILS PERCENT AUTO 74 % (41-73); Platelet Count 348 K/mm3 (150-400); RDW Coefficient Variation 14.2 % (11.7-14.2); RDW Standard Deviation 45.9 fL (35.1-46.3); White Blood Cell Count 13.28 K/mm3 (4.00-11.30)
[2022-10-14 07:25] LABS: Vancomycin, Trough 18.3 ug/mL (5.0-10.0)
[2022-10-14 07:34] LABS: Albumin, Blood 1.9 g/dL (3.4-5.0); Anion Gap 4 mmol/L (6-16); Blood Urea Nitrogen 13 mg/dL (8-24); Bun/Creatinine Ratio 17.7 (12.0-20.0); CO2, Blood 35 mmol/L (21-32); Calcium, Blood 8.3 mg/dL (8.5-10.1); Chloride, Blood 98 mmol/L (98-108); Creatinine, Blood 0.73 mg/dL (0.60-1.20); Glomerular Filtration Rate 122 (60-); Glucose, Blood 103 mg/dL (70-99); Phosphorus, Blood 4.3 mg/dL (2.5-4.9); Potassium, Blood 4.1 mmol/L (3.5-5.5); Sodium, Blood 137 mmol/L (136-145)
--- NOTE | 2022-10-14 08:00 | NUR ---
INITIAL ASSESSMENT: Patient is resting comfortably in bed with his eyes closed, he awakens easily with assessment. He is alert and oriented x4. He reports his pain is at an 8/10 to his right chest and shoulder at this time, pt is medicated with oxycodone at this time. HR, in the 90s while at rest. LS DIm in the bases, biox is mid 90s on 9l via high flow NC. He has a drain tube in the right chest for his Empyema, it has about 20 cc clear yellow liquid in the drainage bag. BT+, pt states he has a bowel movement yesterday and requested to not take his Miralax-he also states he has IBS. PPP, trace edema noted. AM meds given at this time. Patient was able to ambulate to the bathroom independently and void in the urinal. He denies other needs at this time. Call light in reach, will continue to monitor.
--- NOTE | 2022-10-14 14:45 | NUR ---
Update: Dr. Pizarro came to see the patient and changed the drainage device to a waterseal to 20 cm suction. The drain is not putting out so Dr. Pizarro flushed the tube and then put in Cathflo and Pulmozyme. Tube has been clamped for an hour. Patient denies other needs at this time. Call light in reach.
--- NOTE | 2022-10-14 18:34 | NUR ---
Summary: Patient has been alert and oriented x4. HR has been sinus rhythm to sinus tach. This morning while at rest his heart rate was in the 90s, this afternoon he is 120s at rest-the increase in HR is correlated to pain. He has been hypertensize when painful, he recieves Cardizem PO for the BP and HR. LS DIM in the bases, pt has been fluctuating from high flow NC 9-11L, to intermittently using NRB and venturi mask at 55% FIO2. He tolerated the C-Pap for a short amount of time this afternoon with an 11L bleed in. He has a tube to his right upper chest for Empyema, this was initially to a uresil drain and was changed to the water seal canister to [address] Pizarro flushed the tube and put in Pulmozyme and Cathflo. The tube was clamped and when I opened it, it drained about 500cc of serro-sang fluid. This afternoon after the chest tube was unclamped the patient was having alot of pain accompanied by tachycardia and tachypnea. Multiple calls placed to providers and medication given, patients pain is still not well controlled, Dr. Allen is currently reviewing patients chart to see if he is appropriate for a Dilaudid HEALTHCARE ARCHITECT. Family at bedside. Call light in reach. Will report to oncoming RN.
--- NOTE | 2022-10-15 04:46 | NUR ---
SHIFT SUMMARY PT IS A/Ox4 AND IS COOPERATIVE WITH CARE PROVIDED BY MEMBERS OF STAFF. ANSWERS QUESTIONS APPROPRIATELY AND MAKE NEEDS KNOWN. CHEST TUBE REMAINS INTACT AND CONNECTED TO SUCTION DRAINING SEROSANGUINEOUS FLUID INTO COLLECTION CHAMBER. LS CONTINUE TO BE DIMINISHED ON RIGHT SIDE, BUT MAINTAINS SPO2 >90% ON 9-11L VIA HIGH FLOW NC. SOB/INCREASED RR WITH EXERTON. CARDIAC BELL, NO REPORTS OF CP OR PRESSURE T/O THE SHIFT. HR AND BP CONTINUE TO BE STABLE. ABLE TO VOID IND. PAIN MANAGED ORDERED PER EMAR. PT ABLE TO GET A GOOD AMOUNT OF SLEEP LAST NIGHT. VSS, NADN T/O MY SHIFT
[2022-10-15 04:53] LABS: Hematocrit 32.1 % (37.0-53.0); Hemoglobin 10.5 g/dL (13.5-17.5); Mean Corpuscular HGB 28.9 pg (26.0-34.0); Mean Corpuscular HGB Conc 32.7 g/dL (31.5-36.5); Mean Corpuscular Volume 88 fL (80-100); Mean Platelet Volume 9.8 fL (9.1-12.4); Platelet Count 389 K/mm3 (150-400); RDW Standard Deviation 45.7 fL (35.1-46.3); Red Blood Cell Count 3.63 M/mm3 (4.30-5.90)
[2022-10-15 05:11] LABS: Bun/Creatinine Ratio 13.8 (12.0-20.0); Calcium, Blood 8.3 mg/dL (8.5-10.1); Creatinine, Blood 1.23 mg/dL (0.60-1.20); Potassium, Blood 4.3 mmol/L (3.5-5.5)
--- NOTE | 2022-10-15 07:45 | NUR ---
INITIAL ASSESSMENT: Patient is sitting up in bed watching TV, he is alert and oriented x4. He reports his pain is good this am rating it at a 5/10 in his right chest and shoulder, he was medicated with his scheduled tylenol. HRR, ST in the low 100s. LS Clear, Dim in the bases. Biox is high 90s on 8l via high flow NC, O2 is titrated down to 7L with saturations remaining in the mid 90s. He has a drainage tube to his right upper chest, it is secured with an opsite covering it, scant amount of dried blood under the dressing. BT+, pt states he had a BM this morning and is declining bowel care management. Other VSS. Patient denies other needs this AM. Call light in reach.
[2022-10-15 08:11] LABS: Vancomycin, Trough 30.2 ug/mL (5.0-10.0)
[2022-10-15 17:33] LABS: Vancomycin, Random 19.5 ug/mL
--- NOTE | 2022-10-15 17:48 | NUR ---
SUMMARY: Patient has been alert and oriented x4, through out the shift. He was able to have his chest tube clamped and take a shower. After his shower he was able to ambulate around the unit, at times we had to stop so he could catch his breath. HRR, he has been SR in the 90s at rest and low 100s while awake and in pain. LS Dim in the bases, I was able to titrate the oxygen down to 5l via high flow NC. He has had a PC with a moderate amount of thick estevez sputum. Dr. Pizarro instilled cath ramirez and pulmozyme again this shift. Patient tolerated well with better pain management. So far he has about 190cc out into the waterseal canister to suction. BT+, he had a BM this morning. He has been voiding well into the urinal. No acute changes this shift. Will report to oncoming RN.
[2022-10-16 04:18] LABS: Hematocrit 30.2 % (37.0-53.0); Hemoglobin 9.8 g/dL (13.5-17.5); Mean Corpuscular HGB 28.8 pg (26.0-34.0); Mean Corpuscular HGB Conc 32.5 g/dL (31.5-36.5); Mean Corpuscular Volume 89 fL (80-100); Mean Platelet Volume 9.4 fL (9.1-12.4); Platelet Count 428 K/mm3 (150-400); RDW Coefficient Variation 13.8 % (11.7-14.2); RDW Standard Deviation 45.1 fL (35.1-46.3); White Blood Cell Count 13.16 K/mm3 (4.00-11.30)
[2022-10-16 04:35] LABS: Bun/Creatinine Ratio 10.8 (12.0-20.0); Calcium, Blood 8.2 mg/dL (8.5-10.1); Creatinine, Blood 1.58 mg/dL (0.60-1.20); Potassium, Blood 4.7 mmol/L (3.5-5.5)
--- NOTE | 2022-10-16 04:38 | NUR ---
SHIFT SUMMARY A/Ox4 AND IS COOPERATIVE WITH CARE PROVIDED BY MEMBERS OF STAFF. CAN BE ANXIOUS AT TIMES, BUT ABLE TO MAKE NEEDS KNOWN. CHEST TUBE REMAINS SECURE AND IN PLACE. CHEST TUBE CONNECTED TO CONTINIOUS SUCTION AND PRODUCING SEROSANGUINEOUS FLUID. MAINTAINS SPO2 >90% ON 3-5L VIA NC, BUT SOB NOTED WITH EXERTION. CARDIAC BELL, NO REPORTS OR CP OR PRESSURE T/O THE SHIFT. SR-ST (90-100'S) WITH SBP RANGING IN DESTINY 140-150'S. ABLE TO ABULATE WITH SBP WELL HAS BRP. NO ACUTE EVENTS OVER NIGHT AWATING CXR IN THE AM. VSS CONTINUE TO BE STABLE, WILL PASS INFO. TO DAYSHIFT RN
[2022-10-16 05:36] LABS: Albumin, Blood 1.9 g/dL (3.4-5.0); Albumin/Globulin Ratio 0.4 (0.8-1.8); Bilirubin, Total 0.5 mg/dL (0.1-1.0); Globulin, Blood 4.4 g/dL (2.2-4.0); Total Protein, Blood 6.3 g/dL (6.4-8.2)
[2022-10-16 05:47] LABS: BASOPHILS ABSOLUTE AUTO 0.04 K/mm3 (0.00-0.23); BASOPHILS PERCENT AUTO 0 % (0-2); EOSINOPHILS ABSOLUTE AUTO 0.19 K/mm3 (0.00-0.68); EOSINOPHILS PERCENT AUTO 2 % (0-6); IMMATURE GRAN ABSOLUTE AUTO 0.46 K/mm3 (0.00-0.10); IMMATURE GRAN PERCENT AUTO 4 % (0-1); LYMPHOCYTES ABSOLUTE AUTO 1.73 K/mm3 (0.84-5.20); LYMPHOCYTES PERCENT AUTO 13 % (21-46); MONOCYTES ABSOLUTE AUTO 1.02 K/mm3 (0.16-1.47); MONOCYTES PERCENT AUTO 8 % (4-13); NEUTROPHILS ABSOLUTE AUTO 9.62 K/mm3 (1.96-9.15); NEUTROPHILS PERCENT AUTO 74 % (41-73)
[2022-10-16 08:34] LABS: Vancomycin, Random 9.8 ug/mL
--- NOTE | 2022-10-16 11:17 | NUR ---
The pt is alert, oriented, and pleasantly conversant. Stated this morning that his pain level was 5/10, quite tolerable he said compared to how it used to be, which he said was "off of the charts". He was given oxycontin per orders for pain 6/10 mid morning. Anticipating transport for CT scan of chest some time today. Dr. Pizarro was here, rounded on patient. IVF started LR at 200 cc/hour. He is wearing 3 l/min of oxygen, tolerating well his activity of sitting on side of bed, standing up to use the urinal, etc. Able to carry on conversation and complete sentences without any dyspnea.
[2022-10-16 12:37] LABS: Source, Urine Clean Catch
--- NOTE | 2022-10-16 13:15 | NUR ---
Chest tube was disconnected per Dr. Mckeon demonstrated explaination this morning for pt to take a shower. Pt afterwards was taken down at around [address] scan. He is back in bed now, states painful. medicated for pain and asssisted with repositioning for a nap. His girlfriend is at the bedside.
[2022-10-16 13:20] LABS: Appearance, Urine Clear (Clear); Bilirubin, Urine Neg (Neg); Blood, Urine 1+ (Neg); Color, Urine Yellow (P-Yellow); Glucose Qualitative, Urine Neg (Neg); Ketones, Urine Neg (Neg); Leukocyte Esterase, Urine Neg (Neg); Nitrite, Urine Neg (Neg); Protein, Urine Neg (Neg); Urobilinogen, Urine NORM (Normal)
[2022-10-16 13:31] LABS: Bacteria Not Seen /hpf; Red Blood Cells, Urine 0-2 /hpf (0-2); Squamous Epithelial Cells Rare /hpf (Few); White Blood Cells, Urine Not Seen /hpf (0-5)
--- NOTE | 2022-10-16 15:20 | NUR ---
Medicated for anxiety. Pt states pain level is still 8/10.
[2022-10-16 16:32] LABS: Eosinophils-Raw #,Urine 0
[2022-10-16 16:33] LABS: White Blood Cells Urine 0-2 /hpf (0-5)
--- NOTE | 2022-10-16 17:46 | NUR ---
Pt was medicated for pain at [address] Christiansen had done some irrigation of the chest tube to remove obstructing material. He said that he is still having pain, but that it is a tiny bit better.
--- NOTE | 2022-10-16 21:24 | NUR ---
ASSUMPTION OF CARE NOTE THIS RN ASSUMED CARE OF PT AT 1900. PT A&0 X4. PLESANT AND COOPERTIVE WITH CARE. PT FAMILY, MOTHER AND BROTHER, AT BEDSIDE. VSS. CHEST TUBE IN PLACE, DRESSING IN PLACE. THIS RN AND DAYSHIFT RN CHECKED CHEST TUBE TOGETHER. PT DENIES SOB, BUT STILL REPORTING PLEURITIC PAIN WHEN BREATHING. PT REPORTS PAIN IN CHEST AND BACK, 03/13. PAIN IS UNCHANGED FROM PREVIOUS. PAIN MEDICATION WILL BE ADMINISTERED PER EMAR. PT STILL REPORTING "NOT BEING ABLE TO TAKE A DEEP BREATH WITHOUT FEELING LIKE HE NEEDS TO COUGH". OTHERWISE, PT DENIES ANY NEEDS OR CONCERNS AT THIS TIME. CALL LIGHT IN REACH AND BED IN LOWEST POSITION.
--- NOTE | 2022-10-16 22:25 | NUR ---
UPDATE; ROUNDING 2230 PT UP TO USE URINAL INDEPENDENTLY. REPORTS 6/10 PAIN IN CHEST AND BACK, MEDICATION ADMINISTERED PER EMAR; 10 MG ROXICODONE PO. WILL REASSESS PAIN. THIS RN NOTED MILD DYSPNEA W/EXERTION OF GETTING UP TO USE URINAL, SPO2 89% ON 2 L VIA NC. PT RECOVERED WELL WHEN SITTING BACK IN BED, SPO2 94 - 96%. CHEST TUBE STILL SECURE AND IN PLACE. PT DENIES OTHER NEEDS OR CONCERNS AT THIS TIME. PT BACK TO BED AND "READY FOR BED". VANCOMYCIN STARTED AND INFUSING PER EMAR. CALL LIGHT IN REACH AND BED IN LOW POSITION.
--- NOTE | 2022-10-17 00:01 | NUR ---
UPDATE; ROUNDING 0000 PT RESTING IN BED, WATCHING TV. REPORTS PAIN 6/10. MEDICATION ADMINSTERED PER EMAR. PAIN REASSESSMENT, PT RATES PAIN 3-3.5/10. PT STATES HE IS "HOPING HE CAN GET SOME REST" BUT SO FAR "HAS BEEN IN QUITE A BIT OF PAIN". 0000 VSS; ALTHOUGH SBP SLIGHTLY ELEVATED THAN PREVIOUS AT 156. PT REMAINS ON 2 L NC, SPO2 91 - 96%. PT DENIES ANY OTHER NEEDS OR CONCERNS AT THIS TIME
[2022-10-17 04:21] LABS: Hematocrit 30.1 % (37.0-53.0); Hemoglobin 9.6 g/dL (13.5-17.5); Mean Corpuscular HGB 28.8 pg (26.0-34.0); Mean Corpuscular HGB Conc 31.9 g/dL (31.5-36.5); Mean Corpuscular Volume 90 fL (80-100); Mean Platelet Volume 9.2 fL (9.1-12.4); Platelet Count 495 K/mm3 (150-400); RDW Coefficient Variation 13.8 % (11.7-14.2); RDW Standard Deviation 45.7 fL (35.1-46.3); Red Blood Cell Count 3.33 M/mm3 (4.30-5.90); White Blood Cell Count 10.76 K/mm3 (4.00-11.30)
--- NOTE | 2022-10-17 04:34 | NUR ---
UPDATE; ROUNDING 0415 PT AWAKE, UP ON EOB. VSS. PT REPORTS PAIN /10, MEDICATION PER EMAR. CHEST TUBE SECURE AND IN PLACE. ANTIBIOTICS COMPLETED. PT DENIES ANY NEEDS OR CONCERNS AT THIS TIME. CALL LIGHT IN REACH
[2022-10-17 04:35] LABS: Bun/Creatinine Ratio 11.2 (12.0-20.0); Creatinine, Blood 1.7 mg/dL (0.60-1.20); Potassium, Blood 4.3 mmol/L (3.5-5.5)
--- NOTE | 2022-10-17 06:21 | NUR ---
SHIFT SUMMARY PT REMAINS A&O X4. VSS. PT RESTED ON AND OFF THROUGHOUT SHIFT D/T PAIN AND "RESTLESSNESS". MEDICATION ADMINISTERED PER EMAR FOR PAIN. THERE HAVE BEEN NO CHANGES TO CHARACTERISTIC OR PRESENTATION OF PAIN FROM PREVIOUS REPORTS. PAIN RANGING FROM 5 - 7/10. PT UP USING URINAL AND VOIDING FREQUENTLY WITH GOOD OUTPUT. PT HAD ONE BM THIS SHIFT. PT STILL HAVING SOME SOB W/EXERTION AND WHEN UP. PT REMAINED ON 2 L VIA NC THROUGHOUT NIGHT. CHEST TUBE IN PLACE AND SECURE W/30 MLS OF SEROSANGUINEOUS FLUID OUT THIS SHIFT. CALL LIGHT IN REACH AND BED IN LOWEST POSITION. WILL UPDATE ONCOMING RN
--- NOTE | 2022-10-17 09:43 | NUR ---
Pt is sleeping. Wearing 2 l/min of oxygen to keep spo2 greater than 90%.
--- NOTE | 2022-10-17 11:58 | NUR ---
After pt returned from barium swallow study, Dr. Christiansen pulled the chest tube. Large bandaid applied to the area, and pt had no dyspnea, no c/o pain. States it is a little bit tender, that is all. Up ad stevenson in the room and tolerating it well.
[2022-10-17] MEDS ORDERED: DILT30 PO (14:35)
[2022-10-17] MEDS ORDERED: LIDOCAINE1 EAC1 TOP (14:36)
[2022-10-17] MEDS ORDERED: ALBU90OI INH (14:38)
[2022-10-17] MEDS ORDERED: OMEP20ER PO (14:38)
[2022-10-17] MEDS ORDERED: VISBIOME 112.51 EACH PO (14:38)
[2022-10-17] MEDS ORDERED: AMOCLA875 PO (14:39)
[2022-10-17] MEDS ORDERED: FLUT1DIS5 INH (14:39)
== END 2022-10-17 15:02 | disposition home or self-care (01) | DRG 871 ==
LOC: ER 16:59 → PCU 21:22 → MEDS 21:22 → PCU 10-09 17:12
PROVIDERS: Family Medicine; Internal Medicine; Internal Medicine Critical Care Medicine; Physician Assistant; Student in an Organized Health Care Education/Training Program; ADMIT Internal Medicine
PROC: 3E03329 Introduction of Other Anti-infective into Peripheral Vein, Percutaneous Approach (ICD-10-PCS; 2022-10-08)
PROC: 5A09357 Assistance with Respiratory Ventilation, Less than 24 Consecutive Hours, Continuous Positive Airway Pressure (ICD-10-PCS; 2022-10-09)
PROC: 0W9930Z Drainage of Right Pleural Cavity with Drainage Device, Percutaneous Approach (ICD-10-PCS; principal; 2022-10-10)
PROC: 5A0945A Assistance with Respiratory Ventilation, 24-96 Consecutive Hours, High Flow/Velocity Cannula (ICD-10-PCS; 2022-10-10)
PROC: 3E04317 Introduction of Other Thrombolytic into Central Vein, Percutaneous Approach (ICD-10-PCS; 2022-10-12)
DX: A41.9 Sepsis, unspecified organism (principal); J18.9 Pneumonia, unspecified organism; J86.9 Pyothorax without fistula; J96.01 Acute respiratory failure with hypoxia; J91.8 Pleural effusion in other conditions classified elsewhere; N17.9 Acute kidney failure, unspecified; J45.909 Unspecified asthma, uncomplicated; G47.33 Obstructive sleep apnea (adult) (pediatric); F32.A Depression, unspecified; F17.210 Nicotine dependence, cigarettes, uncomplicated; I10 Essential (primary) hypertension; R79.1 Abnormal coagulation profile; F12.10 Cannabis abuse, uncomplicated; Z98.890 Other specified postprocedural states; Z88.0 Allergy status to penicillin; Z88.5 Allergy status to narcotic agent; Z79.899 Other long term (current) drug therapy; Z79.2 Long term (current) use of antibiotics; Z71.6 Tobacco abuse counseling
CPT/HCPCS: 32557; 36415; 71045; 71250; 71260; 74220; 80048; 80053; 80069; 80202; 81001; 82570; 82803; 82945; 83605; 83615; 83735; 83880; 83986; 84157; 84300; 84484; 84540; 85025; 85027; 85379; 87040; 87070; 87075; 87205; 89051; 93005; 93010; 94640; 94660; 94664; 94762; 96361; 96374-59; 96375-59; 99285-25; A9270; C1751; J0360; J0456; J0696; J1170; J1200; J1650; J1885; J1940; J2060; J2543; J2997; J3010; J3370; J7040; J7050; J7120; Q9967

== ENCOUNTER 2022-12-02 08:51 | Inpatient (IN) | payer OTHER ==
[~2022-12-02] VITALS: Ht 190.5 cm; Wt 149.4 kg
[~2022-12-02 08:51] MED LIST changes: +ALBU90OI INH; +AMOCLA875 PO; +DILT30 PO; +DIVA250ER PO; +FLUT1DIS5 INH; +LIDOCAINE1 EAC1 TOP; +OMEP20ER PO; +TIZANIDINE HCL2 M1 PO; +VISBIOME 112.51 EACH PO
[2022-12-02 09:56] LABS: BASOPHILS ABSOLUTE AUTO 0.07 K/mm3 (0.00-0.23); BASOPHILS PERCENT AUTO 0 % (0-2); EOSINOPHILS ABSOLUTE AUTO 0.05 K/mm3 (0.00-0.68); EOSINOPHILS PERCENT AUTO 0 % (0-6); Hematocrit 36.1 % (37.0-53.0); Hemoglobin 11.7 g/dL (13.5-17.5); IMMATURE GRAN ABSOLUTE AUTO 0.12 K/mm3 (0.00-0.10); IMMATURE GRAN PERCENT AUTO 1 % (0-1); LYMPHOCYTES ABSOLUTE AUTO 1.96 K/mm3 (0.84-5.20); LYMPHOCYTES PERCENT AUTO 12 % (21-46); MONOCYTES ABSOLUTE AUTO 1.54 K/mm3 (0.16-1.47); MONOCYTES PERCENT AUTO 9 % (4-13); Mean Corpuscular HGB 28.2 pg (26.0-34.0); Mean Corpuscular HGB Conc 32.4 g/dL (31.5-36.5); Mean Corpuscular Volume 87 fL (80-100); Mean Platelet Volume 9.3 fL (9.1-12.4); NEUTROPHILS ABSOLUTE AUTO 13.02 K/mm3 (1.96-9.15); NEUTROPHILS PERCENT AUTO 78 % (41-73); Platelet Count 349 K/mm3 (150-400); RDW Coefficient Variation 13.9 % (11.7-14.2); RDW Standard Deviation 44.8 fL (35.1-46.3); Red Blood Cell Count 4.15 M/mm3 (4.30-5.90); White Blood Cell Count 16.76 K/mm3 (4.00-11.30)
[2022-12-02 10:35] LABS: Albumin, Blood 3.7 g/dL (3.4-5.0); Albumin/Globulin Ratio 0.9 (0.8-1.8); Bilirubin, Total 0.9 mg/dL (0.1-1.0); Bun/Creatinine Ratio 13.9 (12.0-20.0); Calcium, Blood 9.3 mg/dL (8.5-10.1); Creatinine, Blood 1.01 mg/dL (0.60-1.20); Globulin, Blood 4.3 g/dL (2.2-4.0); Potassium, Blood 4.1 mmol/L (3.5-5.5)
[2022-12-02 14:27] VITALS: BP 166/95
[2022-12-02] MEDS ORDERED: DIVA500EC PO (17:00)
--- NOTE | 2022-12-02 18:48 | NUR ---
SHIFT SUMMARY: C/O SEVERE PAIN IN THROAT AND EARS ("FEELS LIKE ALL THE MUSCLES IN MY NECK ARE TIGHT AND CAUSING PAIN IN MY EARS"). EDUCATED PATIENT ABOUT HIS EUSTACIAN TUBES AND THAT INFLAMMATION HERE MAY BE CAUSING THE PAIN. HE ALSO IS LIKELY CLENCHING THE MUSCLES, UNABLE TO RELAX. MEDICATED FOR PAIN PER EMAR WITH A LITTLE RELIEF. ON ROOM AIR, NO AIRWAY INTERRUPTION. AWAITING STOOL SAMPLE. TOLERATED PILLS WITH WATER. MOTHER IS CONCERNED THAT HE IS NOT RECEIVING IVF, IS AFRAID THAT HE WILL NOT BE ABLE TO DRINK ENOUGH WATER TO STAY HYDRATED. DECLINED DINNER. GETTING UP IN ROOM INDEPENDENTLY.
[2022-12-02 20:46] VITALS: BP 176/98
[2022-12-03 03:59] VITALS: BP 165/99
[2022-12-03 05:04] LABS: BASOPHILS ABSOLUTE AUTO 0.05 K/mm3 (0.00-0.23); BASOPHILS PERCENT AUTO 0 % (0-2); EOSINOPHILS PERCENT AUTO 0 % (0-6); Hemoglobin 11.1 g/dL (13.5-17.5); IMMATURE GRAN ABSOLUTE AUTO 0.19 K/mm3 (0.00-0.10); IMMATURE GRAN PERCENT AUTO 1 % (0-1); LYMPHOCYTES ABSOLUTE AUTO 1.67 K/mm3 (0.84-5.20); LYMPHOCYTES PERCENT AUTO 11 % (21-46); MONOCYTES ABSOLUTE AUTO 0.96 K/mm3 (0.16-1.47); MONOCYTES PERCENT AUTO 7 % (4-13); Mean Corpuscular HGB 28.3 pg (26.0-34.0); Mean Corpuscular HGB Conc 31.7 g/dL (31.5-36.5); Mean Corpuscular Volume 89 fL (80-100); NEUTROPHILS ABSOLUTE AUTO 11.88 K/mm3 (1.96-9.15); NEUTROPHILS PERCENT AUTO 81 % (41-73); Platelet Count 340 K/mm3 (150-400); RDW Coefficient Variation 14.5 % (11.7-14.2); RDW Standard Deviation 47.3 fL (35.1-46.3); Red Blood Cell Count 3.92 M/mm3 (4.30-5.90); White Blood Cell Count 14.75 K/mm3 (4.00-11.30)
--- NOTE | 2022-12-03 05:22 | NUR ---
PATIENT HAS BEEN VERY ANXIOUS AND PAINFUL THROUGHOUT THE NIGHT, THROAT AND EARS, TREATED PER MAR WITH TOREDOL, DILAUDID AND XANAX. PER PATIENTS REQUEST, CONT PULSEM OX ORDERED. HTN, OTHERWISE VSS. 1+ EDEMA TO RLE, LUNGS ARE DIM BUT CLEAR. 1L NS ADMINISTERED WELL IV ANTIBIOTICS. WILL CONT TO MONITOR.
[2022-12-03 05:34] LABS: Albumin, Blood 3.3 g/dL (3.4-5.0); Albumin/Globulin Ratio 0.7 (0.8-1.8); Bilirubin, Total 0.4 mg/dL (0.1-1.0); Bun/Creatinine Ratio 21.9 (12.0-20.0); Calcium, Blood 9.4 mg/dL (8.5-10.1); Creatinine, Blood 0.78 mg/dL (0.60-1.20); Globulin, Blood 4.5 g/dL (2.2-4.0); Potassium, Blood 4.2 mmol/L (3.5-5.5); Total Protein, Blood 7.8 g/dL (6.4-8.2)
[2022-12-03 08:17] VITALS: BP 148/78
[2022-12-03 16:28] VITALS: BP 159/83
[2022-12-03 19:25] VITALS: BP 150/79
--- NOTE | 2022-12-03 19:26 | NUR ---
SHIFT SUMMARY PATIENT ALERT WHEN AWAKE, TAKES FREQUENT NAPS. ORIENTED BUT FREQUENTLY ANXIOUS. REPORTS SEVERE PAIN TO EARS RADIATING DOWN THROUGH NECK, BASE OF TONGUE/JAW INTO THROAT. ROUTINE IV ABX. MEDICATED FOR PAIN WITH IV DILAUDID AND TORADOL PER EMAR. PO NORCO ADDED THIS SHIFT. LIDOCAINE SWISH AND SWALLOW QID MEALS AND BEDTIME. SBA TO BATHROOM, PRN PO ATIVAN. SPOUSE VISITED BEFORE AND AFTER WORK. LOW PO INTAKE OF LIQUIDS AND FOOD DUE TO THROAT PAIN. REMAINS IN CONTACT ISOLATION FOR C-DIFF RULE OUT, NO BM THIS SHIFT. VOIDING WELL.
[2022-12-04 05:22] VITALS: BP 149/103
--- NOTE | 2022-12-04 06:15 | NUR ---
SHIFT ASSESSMENT NO ACUTE CHANGES NOTED, PT CONTINUES TO HAVE PAIN IN HIS THROAT THAT RADIATES "THROUGH HIS EARS" MEDICATED PER EMAR, VSS, SBA, PT WAS ABLE TO SHOWER, VOIDING WNL, TAKING SMALL SIPS OF FLUIDS, RESTING QUIETLY AT THIS TIME, CALL LIGHT IN REACH, WCTM & REPORT TO DAY RN.
[2022-12-04 08:03] VITALS: BP 176/108
[2022-12-04 08:37] LABS: BASOPHILS ABSOLUTE AUTO 0.04 K/mm3 (0.00-0.23); BASOPHILS PERCENT AUTO 0 % (0-2); EOSINOPHILS PERCENT AUTO 0 % (0-6); Hematocrit 36.4 % (37.0-53.0); Hemoglobin 11.5 g/dL (13.5-17.5); IMMATURE GRAN ABSOLUTE AUTO 0.21 K/mm3 (0.00-0.10); IMMATURE GRAN PERCENT AUTO 2 % (0-1); LYMPHOCYTES ABSOLUTE AUTO 1.82 K/mm3 (0.84-5.20); LYMPHOCYTES PERCENT AUTO 19 % (21-46); MONOCYTES ABSOLUTE AUTO 0.45 K/mm3 (0.16-1.47); MONOCYTES PERCENT AUTO 5 % (4-13); Mean Corpuscular HGB 28.3 pg (26.0-34.0); Mean Corpuscular HGB Conc 31.6 g/dL (31.5-36.5); Mean Corpuscular Volume 90 fL (80-100); NEUTROPHILS ABSOLUTE AUTO 6.84 K/mm3 (1.96-9.15); NEUTROPHILS PERCENT AUTO 73 % (41-73); Platelet Count 353 K/mm3 (150-400); RDW Coefficient Variation 14.3 % (11.7-14.2); RDW Standard Deviation 47.6 fL (35.1-46.3); Red Blood Cell Count 4.06 M/mm3 (4.30-5.90); White Blood Cell Count 9.36 K/mm3 (4.00-11.30)
[2022-12-04 09:06] LABS: Albumin, Blood 3.3 g/dL (3.4-5.0); Albumin/Globulin Ratio 0.7 (0.8-1.8); Bilirubin, Total 0.2 mg/dL (0.1-1.0); Bun/Creatinine Ratio 26.3 (12.0-20.0); Calcium, Blood 9.4 mg/dL (8.5-10.1); Creatinine, Blood 0.84 mg/dL (0.60-1.20); Globulin, Blood 4.5 g/dL (2.2-4.0); Potassium, Blood 4.4 mmol/L (3.5-5.5); Total Protein, Blood 7.8 g/dL (6.4-8.2)
[2022-12-04] MEDS ORDERED: Norco 5-325 Ta1 EACH PO (14:23)
[2022-12-04] MEDS ORDERED: Xylocaine5 M1 MT (14:25)
[2022-12-04] MEDS ORDERED: LOSA50 PO (14:25)
[2022-12-04] MEDS ORDERED: AMOX500 PO (14:25)
--- NOTE | 2022-12-04 15:26 | NUR ---
Discharge note- Pt was given verbal and written discharge instructions and acknowledged understanding of them. Pt mother was present for the discharge teaching, iv pain medication was given prior to iv dc. Pt declined escort and walked out of the hospital with his mother. No s&s of distress noted at the time of discharge.
--- NOTE | 2022-12-04 17:04 | NUR ---
DC SUMMARY PTN D/C'D AT 1525 VIA . D/C PAPERWORK REVIEWED WITH PTN AND FAMILY, ALL QUESTIONS WERE ANSWERED. MEDICATION LIST SENT TO PHARMACY, ONE HARD SCRIPT WRITTEN BY DR MAURICIO FOR PTN TO BALLING HEAD TENDER.
== END 2022-12-04 15:21 | disposition home or self-care (01) | DRG 872 ==
LOC: ER 08:51 → MEDS 11:47
PROVIDERS: Student in an Organized Health Care Education/Training Program; ADMIT Family Medicine
DX: A41.9 Sepsis, unspecified organism (principal); Z68.41 Body mass index [BMI] 40.0-44.9, adult; J02.0 Streptococcal pharyngitis; R59.1 Generalized enlarged lymph nodes; E66.09 Other obesity due to excess calories; I10 Essential (primary) hypertension; F32.A Depression, unspecified; J45.909 Unspecified asthma, uncomplicated; F41.9 Anxiety disorder, unspecified; F25.0 Schizoaffective disorder, bipolar type; Z88.0 Allergy status to penicillin; Z87.01 Personal history of pneumonia (recurrent); Z88.5 Allergy status to narcotic agent; Z79.899 Other long term (current) drug therapy; Z79.51 Long term (current) use of inhaled steroids; Z79.2 Long term (current) use of antibiotics; Z79.52 Long term (current) use of systemic steroids; Z98.890 Other specified postprocedural states; Z87.891 Personal history of nicotine dependence
CPT/HCPCS: 36415; 70491; 71046; 80053; 83605; 85025; 87040; 87430; 94640; 94664; 94760; 94762; 96361; 96365-59; 96375-59; 99285-25; A9270; J0295; J1100; J1170; J1650; J1885; J7030; J7050; Q9967

== ENCOUNTER 2023-05-13 16:05 | Emergency (ER) | payer OTHER ==
[~2023-05-13] VITALS: Ht 190.5 cm; Wt 158.8 kg
[~2023-05-13 16:05] MED LIST changes: +AMOX500 PO; +DIVA500EC PO; +LOSA50 PO; +Xylocaine5 M1 MT
[2023-05-13 16:42] LABS: BASOPHILS ABSOLUTE AUTO 0.05 K/mm3 (0.00-0.23); BASOPHILS PERCENT AUTO 1 % (0-2); EOSINOPHILS ABSOLUTE AUTO 0.04 K/mm3 (0.00-0.68); EOSINOPHILS PERCENT AUTO 0 % (0-6); Hematocrit 40.4 % (37.0-53.0); Hemoglobin 13.2 g/dL (13.5-17.5); IMMATURE GRAN ABSOLUTE AUTO 0.03 K/mm3 (0.00-0.10); IMMATURE GRAN PERCENT AUTO 0 % (0-1); LYMPHOCYTES ABSOLUTE AUTO 1.74 K/mm3 (0.84-5.20); LYMPHOCYTES PERCENT AUTO 20 % (21-46); MONOCYTES ABSOLUTE AUTO 0.47 K/mm3 (0.16-1.47); MONOCYTES PERCENT AUTO 5 % (4-13); Mean Corpuscular HGB 29.5 pg (26.0-34.0); Mean Corpuscular HGB Conc 32.7 g/dL (31.5-36.5); Mean Corpuscular Volume 90 fL (80-100); Mean Platelet Volume 9.8 fL (9.1-12.4); NEUTROPHILS ABSOLUTE AUTO 6.61 K/mm3 (1.96-9.15); NEUTROPHILS PERCENT AUTO 74 % (41-73); Platelet Count 249 K/mm3 (150-400); RDW Coefficient Variation 14.3 % (11.7-14.2); RDW Standard Deviation 47.4 fL (35.1-46.3); Red Blood Cell Count 4.47 M/mm3 (4.30-5.90); White Blood Cell Count 8.94 K/mm3 (4.00-11.30)
[2023-05-13 17:01] LABS: Albumin, Blood 4.5 g/dL (3.4-5.0); Albumin/Globulin Ratio 1.5 (0.8-1.8); Bilirubin, Total 0.3 mg/dL (0.1-1.0); Bun/Creatinine Ratio 17.3 (12.0-20.0); Calcium, Blood 9.1 mg/dL (8.5-10.1); Creatinine, Blood 0.98 mg/dL (0.60-1.20); Globulin, Blood 3.1 g/dL (2.2-4.0); Potassium, Blood 4.2 mmol/L (3.5-5.5); Total Protein, Blood 7.6 g/dL (6.4-8.2)
[2023-05-13] MEDS ORDERED: DILT30 PO (17:52)
[2023-05-13 18:02] VITALS: BP 144/99
== END 2023-05-13 18:02 | disposition home or self-care (01) ==
LOC: ER 16:05
PROVIDERS: Physician Assistant
DX: I10 Essential (primary) hypertension (principal); F17.210 Nicotine dependence, cigarettes, uncomplicated; Z79.899 Other long term (current) drug therapy
CPT/HCPCS: 71046; 80053; 83690; 84484; 85025; 93005; 93010; 99285-25

== ENCOUNTER 2023-06-08 19:51 | Emergency (ER) | payer OTHER ==
[~2023-06-08] VITALS: Ht 188 cm; Wt 156.9 kg
[2023-06-08 20:03] VITALS: BP 183/110
[2023-06-08] MEDS ORDERED: LIDOCAINE1 EACH TOP (21:28)
== END 2023-06-08 21:53 | disposition home or self-care (01) ==
LOC: ER 19:51
DX: S06.0X9A Concussion with loss of consciousness of unspecified duration, initial encounter (principal); M25.511 Pain in right shoulder; M47.812 Spondylosis without myelopathy or radiculopathy, cervical region; I10 Essential (primary) hypertension; F17.210 Nicotine dependence, cigarettes, uncomplicated; W18.2XXA Fall in (into) shower or empty bathtub, initial encounter; Z79.899 Other long term (current) drug therapy; Z88.0 Allergy status to penicillin; Z88.5 Allergy status to narcotic agent
CPT/HCPCS: 29105; 70450; 72125; 73030; 96372-59; 99284-25; A9270; J1885

== ENCOUNTER 2023-08-30 19:41 | Emergency (ER) | payer OTHER ==
[~2023-08-30] VITALS: Ht 190.5 cm; Wt 154.2 kg
[~2023-08-30 19:41] MED LIST changes: +LIDOCAINE1 EACH TOP
[2023-08-30 20:29] LABS: BASOPHILS ABSOLUTE AUTO 0.05 K/mm3 (0.00-0.23); BASOPHILS PERCENT AUTO 1 % (0-2); EOSINOPHILS ABSOLUTE AUTO 0.11 K/mm3 (0.00-0.68); EOSINOPHILS PERCENT AUTO 1 % (0-6); Hematocrit 39.8 % (37.0-53.0); Hemoglobin 13.2 g/dL (13.5-17.5); IMMATURE GRAN ABSOLUTE AUTO 0.03 K/mm3 (0.00-0.10); IMMATURE GRAN PERCENT AUTO 0 % (0-1); LYMPHOCYTES ABSOLUTE AUTO 2.59 K/mm3 (0.84-5.20); LYMPHOCYTES PERCENT AUTO 29 % (21-46); MONOCYTES ABSOLUTE AUTO 0.59 K/mm3 (0.16-1.47); MONOCYTES PERCENT AUTO 7 % (4-13); Mean Corpuscular HGB 29.4 pg (26.0-34.0); Mean Corpuscular HGB Conc 33.2 g/dL (31.5-36.5); Mean Corpuscular Volume 89 fL (80-100); Mean Platelet Volume 10.1 fL (9.1-12.4); NEUTROPHILS ABSOLUTE AUTO 5.49 K/mm3 (1.96-9.15); NEUTROPHILS PERCENT AUTO 62 % (41-73); Platelet Count 231 K/mm3 (150-400); RDW Coefficient Variation 13.9 % (11.7-14.2); RDW Standard Deviation 44.9 fL (35.1-46.3); Red Blood Cell Count 4.49 M/mm3 (4.30-5.90); White Blood Cell Count 8.86 K/mm3 (4.00-11.30)
[2023-08-30 20:49] LABS: Albumin, Blood 4.7 g/dL (3.4-5.0); Albumin/Globulin Ratio 1.5 (0.8-1.8); Bilirubin, Total 0.5 mg/dL (0.1-1.0); Bun/Creatinine Ratio 13.1 (12.0-20.0); Calcium, Blood 9.7 mg/dL (8.5-10.1); Globulin, Blood 3.1 g/dL (2.2-4.0); Potassium, Blood 3.5 mmol/L (3.5-5.5); Total Protein, Blood 7.8 g/dL (6.4-8.2)
[2023-08-30 23:47] LABS: Adenovirus Not Detected (NOT DETECT); Bordetella pertussis Not Detected (NOT DETECT); Chlamydophila pneumoniae Not Detected (NOT DETECT); Coronavirus 229E Not Detected (NOT DETECT); Coronavirus HKU1 Not Detected (NOT DETECT); Coronavirus NL63 Not Detected (NOT DETECT); Coronavirus OC43 Not Detected (NOT DETECT); Human Metapneumovirus Not Detected (NOT DETECT); Human Rhinovirus/Enterovirus Not Detected (NOT DETECT); Influenza A/2009-H1 Not Detected (NOT DETECT); Influenza A/H1 Not Detected (NOT DETECT); Influenza A/H3 Not Detected (NOT DETECT); Influenza B Not Detected (NOT DETECT); Mycoplasma pneumoniae Not Detected (NOT DETECT); Parainfluenza Virus 1 Not Detected (NOT DETECT); Parainfluenza Virus 2 Not Detected (NOT DETECT); Parainfluenza Virus 3 Not Detected (NOT DETECT); Parainfluenza Virus 4 Not Detected (NOT DETECT); Respiratory Syncytial Virus Not Detected (NOT DETECT); SARS-Cov-2 (COVID-19), BioFire Not Detected (NOT DETECT)
[2023-08-31] MEDS ORDERED: DIVA500EC PO (00:16)
[2023-08-31] MEDS ORDERED: PSEU120ER PO (00:16)
[2023-08-31 00:25] VITALS: BP 151/93
== END 2023-08-31 00:25 | disposition home or self-care (01) ==
LOC: ER 19:41
PROVIDERS: Emergency Medicine; Family Medicine
DX: J06.9 Acute upper respiratory infection, unspecified (principal); Z88.0 Allergy status to penicillin; Z88.5 Allergy status to narcotic agent; Z79.899 Other long term (current) drug therapy; I10 Essential (primary) hypertension; F17.210 Nicotine dependence, cigarettes, uncomplicated
CPT/HCPCS: 0202U; 71046; 80053; 85025; 99285-25; A9270; J7030

== ENCOUNTER → 2024-01-11 | Outpatient (CLI) | payer OTHER ==
[~2024-01-11] MED LIST changes: +PSEU120ER PO
[2024-01-11 11:47] LABS: BASOPHILS ABSOLUTE AUTO 0.04 K/mm3 (0.00-0.23); BASOPHILS PERCENT AUTO 1 % (0-2); EOSINOPHILS ABSOLUTE AUTO 0.21 K/mm3 (0.00-0.68); EOSINOPHILS PERCENT AUTO 3 % (0-6); Hemoglobin 13.4 g/dL (13.5-17.5); Mean Corpuscular HGB 29.3 pg (26.0-34.0); Mean Corpuscular HGB Conc 33.5 g/dL (31.5-36.5); Mean Corpuscular Volume 87 fL (80-100); Mean Platelet Volume 10.1 fL (9.1-12.4); Platelet Count 198 K/mm3 (150-400); RDW Coefficient Variation 13.7 % (11.7-14.2); RDW Standard Deviation 43.3 fL (35.1-46.3); Red Blood Cell Count 4.58 M/mm3 (4.30-5.90)
[2024-01-11 11:50] LABS: IMMATURE GRAN ABSOLUTE AUTO 0.02 K/mm3 (0.00-0.10); IMMATURE GRAN PERCENT AUTO 0 % (0-1); LYMPHOCYTES ABSOLUTE AUTO 1.78 K/mm3 (0.84-5.20); LYMPHOCYTES PERCENT AUTO 28 % (21-46); MONOCYTES ABSOLUTE AUTO 0.43 K/mm3 (0.16-1.47); MONOCYTES PERCENT AUTO 7 % (4-13); NEUTROPHILS ABSOLUTE AUTO 3.92 K/mm3 (1.96-9.15); NEUTROPHILS PERCENT AUTO 61 % (41-73)
[2024-01-11 12:08] LABS: Albumin, Blood 4.7 g/dL (3.4-5.0); Albumin/Globulin Ratio 1.6 (0.8-1.8); Bilirubin, Total 0.6 mg/dL (0.1-1.0); Bun/Creatinine Ratio 16.3 (12.0-20.0); Calcium, Blood 9.3 mg/dL (8.5-10.1); Creatinine, Blood 0.98 mg/dL (0.60-1.20); Free Thyroxine 1.09 ng/dL (0.70-1.60); Thyroid Stimulating Hormone 0.633 uIU/mL (0.360-4.800); Total Protein, Blood 7.7 g/dL (6.4-8.2)
[2024-01-11 12:40] LABS: PSA, %Free 19.9 %; PSA, Free 0.113 ng/mL; Prostate Specific Antigen 0.569 ng/mL (0.000-4.000)
== END ==
LOC: LAB SHORT 11:41 → LAB 11:41
PROVIDERS: Internal Medicine
DX: R07.9 Chest pain, unspecified (principal)
CPT/HCPCS: 80053; 83036; 84153; 84154; 84439; 84443; 85025

== ENCOUNTER 2024-02-20 23:06 | Emergency (ER) | payer OTHER ==
[~2024-02-20] VITALS: Ht 190.5 cm; Wt 148.3 kg
[2024-02-20 23:12] VITALS: BP 151/88
== END 2024-02-21 01:01 | disposition left against medical advice (07) ==
LOC: ER 23:06
DX: R07.81 Pleurodynia (principal); M54.89 Other dorsalgia; Z53.29 Procedure and treatment not carried out because of patient's decision for other reasons
CPT/HCPCS: 71100; 72128

== ENCOUNTER 2024-07-30 12:05 | Emergency (ER) | payer OTHER ==
[~2024-07-30] VITALS: Ht 190.5 cm; Wt 154.2 kg
[2024-07-30] MEDS ORDERED: NS 1,000 ML IV SCH ×2 (12:35→14:55)
[2024-07-30] MEDS ORDERED: Ondansetron HCl 2 MG / ML 2ML Vial IV ONE ×3 (12:35→15:40)
[2024-07-30 12:58] LABS: BASOPHILS ABSOLUTE AUTO 0.05 K/mm3 (0.00-0.23); BASOPHILS PERCENT AUTO 1 % (0-2); EOSINOPHILS ABSOLUTE AUTO 0.03 K/mm3 (0.00-0.68); EOSINOPHILS PERCENT AUTO 0 % (0-6); Hematocrit 43.7 % (37.0-53.0); Hemoglobin 14.9 g/dL (13.5-17.5); IMMATURE GRAN ABSOLUTE AUTO 0.03 K/mm3 (0.00-0.10); IMMATURE GRAN PERCENT AUTO 0 % (0-1); LYMPHOCYTES PERCENT AUTO 13 % (21-46); MONOCYTES ABSOLUTE AUTO 0.44 K/mm3 (0.16-1.47); MONOCYTES PERCENT AUTO 4 % (4-13); Mean Corpuscular HGB 28.9 pg (26.0-34.0); Mean Corpuscular HGB Conc 34.1 g/dL (31.5-36.5); Mean Corpuscular Volume 85 fL (80-100); NEUTROPHILS ABSOLUTE AUTO 9.07 K/mm3 (1.96-9.15); NEUTROPHILS PERCENT AUTO 82 % (41-73); Platelet Count 242 K/mm3 (150-400); RDW Coefficient Variation 13.3 % (11.7-14.2); RDW Standard Deviation 41.5 fL (35.1-46.3); Red Blood Cell Count 5.16 M/mm3 (4.30-5.90); White Blood Cell Count 11.02 K/mm3 (4.00-11.30)
[2024-07-30 13:25] LABS: Albumin, Blood 5.1 g/dL (3.4-5.0); Albumin/Globulin Ratio 1.5 (0.8-1.8); Bilirubin, Total 0.6 mg/dL (0.1-1.0); Bun/Creatinine Ratio 20.4 (12.0-20.0); Calcium, Blood 10.1 mg/dL (8.5-10.1); Creatinine, Blood 1.03 mg/dL (0.60-1.20); Globulin, Blood 3.3 g/dL (2.2-4.0); Potassium, Blood 4.3 mmol/L (3.5-5.5); Total Protein, Blood 8.4 g/dL (6.4-8.2)
[2024-07-30 13:43] LABS: Influenza A, PCR NEGATIVE (NEGATIVE); Influenza B, PCR NEGATIVE (NEGATIVE); Resp Syncytial Virus, PCR NEGATIVE (NEGATIVE); SARS-Cov-2 (COVID-19) PCR, MMC NEGATIVE (NEGATIVE)
[2024-07-30] MEDS ORDERED: Naproxen250 MG PO (15:01)
[2024-07-30 16:40] LABS: Source, Urine Clean Catch
[2024-07-30 16:44] LABS: Appearance, Urine Clear (Clear); Blood, Urine Neg (Neg); Glucose Qualitative, Urine Neg (Neg); Ketones, Urine 3+ (Neg); Leukocyte Esterase, Urine 1+ (Neg); Nitrite, Urine Neg (Neg); Protein, Urine 2+ (Neg); Urobilinogen, Urine NORM (Normal)
[2024-07-30 16:48] LABS: Bilirubin, Urine 1+ (Neg); Color, Urine Amber (P-Yellow)
[2024-07-30 16:53] LABS: Mucus Mod (0-Heavy)
[2024-07-30 16:54] LABS: Bacteria Few /hpf; Red Blood Cells, Urine 0-2 /hpf (0-2); Squamous Epithelial Cells Rare /hpf (Few)
[2024-07-30 16:55] VITALS: BP 134/74
[2024-07-30] MEDS ORDERED: ONDA4ODT MM (17:48)
== END 2024-07-30 17:52 | disposition home or self-care (01) ==
LOC: ER 12:05
PROVIDERS: Student in an Organized Health Care Education/Training Program
DX: B34.9 Viral infection, unspecified (principal); I10 Essential (primary) hypertension; F17.210 Nicotine dependence, cigarettes, uncomplicated; Z79.899 Other long term (current) drug therapy; Z88.0 Allergy status to penicillin; Z88.5 Allergy status to narcotic agent
CPT/HCPCS: 0241U; 71046; 74177; 80053; 81001; 85025; 87086; 93005; 93010; 96361; 96374; 96376; 99284-25; J2405; J7030; Q9967

== ENCOUNTER → 2024-08-31 | Outpatient (CLI) | payer OTHER ==
[~2024-08-31] MED LIST changes: +Naproxen250 MG PO; +ONDA4ODT MM
[2024-08-31 11:43] LABS: BASOPHILS ABSOLUTE AUTO 0.04 K/mm3 (0.00-0.23); BASOPHILS PERCENT AUTO 0 % (0-2); EOSINOPHILS ABSOLUTE AUTO 0.08 K/mm3 (0.00-0.68); EOSINOPHILS PERCENT AUTO 1 % (0-6); Hematocrit 40.3 % (37.0-53.0); Hemoglobin 13.5 g/dL (13.5-17.5); IMMATURE GRAN ABSOLUTE AUTO 0.04 K/mm3 (0.00-0.10); IMMATURE GRAN PERCENT AUTO 0 % (0-1); LYMPHOCYTES ABSOLUTE AUTO 2.45 K/mm3 (0.84-5.20); LYMPHOCYTES PERCENT AUTO 27 % (21-46); MONOCYTES ABSOLUTE AUTO 0.42 K/mm3 (0.16-1.47); MONOCYTES PERCENT AUTO 5 % (4-13); Mean Corpuscular HGB 28.1 pg (26.0-34.0); Mean Corpuscular HGB Conc 33.5 g/dL (31.5-36.5); Mean Corpuscular Volume 84 fL (80-100); Mean Platelet Volume 9.8 fL (9.1-12.4); NEUTROPHILS ABSOLUTE AUTO 6.11 K/mm3 (1.96-9.15); NEUTROPHILS PERCENT AUTO 67 % (41-73); Platelet Count 285 K/mm3 (150-400); RDW Coefficient Variation 13.3 % (11.7-14.2); RDW Standard Deviation 41.2 fL (35.1-46.3); White Blood Cell Count 9.14 K/mm3 (4.00-11.30)
[2024-08-31 11:53] LABS: Albumin, Blood 4.7 g/dL (3.4-5.0); Albumin/Globulin Ratio 1.3 (0.8-1.8); Bilirubin, Total 0.4 mg/dL (0.1-1.0); Bun/Creatinine Ratio 20.6 (12.0-20.0); Creatinine, Blood 0.97 mg/dL (0.60-1.20); Globulin, Blood 3.6 g/dL (2.2-4.0); Potassium, Blood 4.2 mmol/L (3.5-5.5); Total Protein, Blood 8.3 g/dL (6.4-8.2)
== END | disposition home or self-care (01) ==
LOC: LAB SHORT 11:38
PROVIDERS: Physician Assistant
DX: R07.9 Chest pain, unspecified (principal)
CPT/HCPCS: 80053; 83690; 84484; 85025

== ENCOUNTER 2025-04-19 16:07 | Emergency (ER) | payer OTHER ==
[~2025-04-19] VITALS: Ht 190.5 cm; Wt 158.8 kg
[2025-04-19 16:30] VITALS: BP 161/89
[2025-04-19] MEDS ORDERED: OxyCODONE 7.5 mg/Acetam 325 mg TABLET PO ONE (18:45)
[2025-04-19] MEDS ORDERED: Ondansetron 4 MG SoluTab BC ONE (18:45)
[2025-04-19] MEDS ORDERED: RX Prepack 6 Tabs Oxycodone 5mg UD ONE (18:45)
[2025-04-19] MEDS ORDERED: RX Prepack 2 Tabs Ondansetron ODT 4MG UD ONE (18:45)
[2025-04-19] MEDS ORDERED: Percocet 5-3251 EACH PO (18:55)
[2025-04-19] MEDS ORDERED: SULTRIDS PO (18:55)
[2025-04-19] MEDS ORDERED: Trimethoprim/Sulfamethoxazole DS Tab PO ONE (18:55)
== END 2025-04-19 19:00 | disposition home or self-care (01) ==
LOC: ER 16:07
DX: S68.621A Partial traumatic transphalangeal amputation of left index finger, initial encounter (principal); I10 Essential (primary) hypertension; F17.210 Nicotine dependence, cigarettes, uncomplicated; X58.XXXA Exposure to other specified factors, initial encounter; Z79.899 Other long term (current) drug therapy; Z88.0 Allergy status to penicillin; Z88.5 Allergy status to narcotic agent
CPT/HCPCS: 29130; 73140; 99283-25; A9270